=== PATIENT | male | born 1980 | race Caucasian/White ===

== ENCOUNTER 2018-09-21 22:26 | Inpatient (IN) ==
[2018-09-21] MEDS ORDERED: HALOPERIDOL 5 MG TABLET PO ONE (22:54)
[2018-09-21] MEDS ORDERED: OLANZapine 5 MG TABLET PO ONE ×2 (22:54→23:45)
[2018-09-21] MEDS ORDERED: LORazepam 1 MG TABLET PO ONE (22:56)
--- NOTE | 2018-09-21 23:00 | Emergency Department Note ---
Psych HPI - General Chief Complaint: Psychiatric Symptoms Stated Complaint: psych Time Seen by Provider: 09/21/18 22:31 Source: patient Mode of arrival: ambulatory - History of Present Illness HPI Narrative: Patient brought in by police for q. evaluation as his daughter had contacted the police. The patient is chronic schizophrenia but is refusing to take his medications has been seen by QB in the past. Has put a metal tourniquet on his base of his fourth ring finger on the left which shows marked discoloration black and bluish in the distal finger his hand is markedly swollen with erythema as well. Patient is highly uncooperative refusing examination, refusing la boratory tests, refusing medications.. After much explanation patient did agree to have an x-ray taken and did agree to take some medications and have ordered some Zyprexa 5 mg as well as Ativan. [facility] is here to help evaluate with the patient. he states he does not take any medications for his schizophrenia, patient is refusing his blood pressure and temperature at this time pulse is 115 respirations are 16 pulse ox is 92% patient is agreeing at this time to have an x-ray taken in the room. He did agree to take some oral Zyprexa and some Ativan.. Patient is still refusing to have any blood work drawn. Patient states a voice from [employer] told him to put the tourniquet ring on 9 days ago. - Related Data Home Medications Medication Instructions Recorded Confirmed No Known Home Meds 06/26/17 06/26/17 Allergies Allergy/AdvReac Type Severity Reaction Status Date / Time No Known Drug Allergies Allergy Verified 09/21/18 22:36 Review of Systems Limitations: ROS unobtainable due to patients medical condition Constitutional: Reports: fever Past Medical History - Past Medical History PMF Narrative: All Active Problems Contact dermatitis due to poison chhaya (Acute) Foot laceration (Acute) Psychiatric Symptoms (Acute) Schizophrenia, chronic condition with acute exacerbation (Acute) Chronic schizophrenia (Acute) Hand contusion (Acute) Sore throat (viral) (Acute) Cellulitis (Acute) Laceration (Acute) Urethral injury (Chronic) Nausea and vomiting (Chronic) Weight loss (Chronic) Diarrhea (Chronic) Tobacco abuse (Chronic) Gastritis (Acute) Past Surgical History Status post surgery (Chronic) Family History Father Malignant neoplasm of lung Arthritis Mother Essential hypertension Sister Arthritis Psychiatric history: Reports: schizophrenia Surgical history ED: Reports: other (History of pelvic fracture) - Social History smoking status: Current every day smoker Alcohol use: Reports: Occasionally Drug use: Reports: unknown Physical Exam Limitations: altered mental status General appearance: anxious Head: atraumatic Eye: Present: normal appearance, PERRL ENT: normal exam, normal oropharynx Neck: Present: normal inspection, full ROM Chest: Present: normal inspection, symmetric chest wall rise. Absent: tenderness Respiratory: Present: normal lung sounds bilaterally. Absent: respiratory distress Cardiovascular: Present: regular rate Abdominal: Present: soft. Absent: distention, tenderness Shoulder: Present: normal inspection, full ROM Arm: Present: normal inspection, full ROM Elbow: Present: normal inspection, full ROM Forearm/Wrist: Present: normal inspection, full ROM Hand: Present: swelling, ecchymosis (Patient has a [place] on the fourth left digit and ecchymosis black and bluish discoloration erythema to the hand), erythema Vascular: Normal: capillary refill (Poor capillary refill to the left fourth distal digit) Back: Present: normal inspection, full ROM Psychiatric: Present: agitated, poor eye contact, other (Patient hearing voices, voice from [place] telling him to put the tourniquet on his finger) Course Vital Signs Pulse Rate 115 H 09/21/18 22:28 Respiratory Rate 16 09/21/18 22:28 Pulse Oximetry (%) 92 09/21/18 22:28 Temperature 99.0 F 09/22/18 00:08 Pulse Rate 115 H 09/21/18 22:28 Respiratory Rate 22 09/21/18 23:00 Blood Pressure 155/101 09/21/18 23:00 Pulse Oximetry (%) 96 09/21/18 23:00 Psych - MDM Narrative Medical decision making narrative: Patient did agreed on the have a blood draw, but is refusing any consult with a surgeon. We did contact Dr. Yuan states that we should try to cut this ring off although described to him the thickness of the metal on the finger. Patient states he does not trust any doctor and states he wants to leave. He did allow us to get an x-ray. Patient did agree to taking the Zyprexa 5 mg. he has become less agitated has agreed to take another 5 mg Zyprexa. Is also going to let us put an IV and we will start him on some vancomycin. Patient finally convinced that he would allow surgeon to evaluate him. Dr. Julian here to evaluate. He has infiltrated the area with Xylocaine and with much effort did remove the ring. Patient is able to flex the finger however finger still appears to be black and bluish discoloration. Dr. Julian has elected to hospitalize him - Lab Data Result diagrams: 09/21/18 23:35 09/21/18 23:35 Lab Results 09/21/18 09/21/18 09/21/18 Range/Units 23:35 23:35 23:35 WBC 11.7 H (4.5-11.0) K/mcL RBC 4.63 (4.50-5.90) M/mcL Hgb 13.9 (13.5-16.5) g/dL Hct 41.9 (41.0-55.0) % MCV 90.6 (80.0-100.0) fL MCH 30.2 (26.0-34.0) pg MCHC 33.3 (31.0-36.0) g/dL RDW 14.4 (11.5-14.5) % Plt Count 312 (140-440) K/mcL MPV 8.6 (7.4-10.4) fL Total Counted 100 Seg Neutrophils % 80 H (38-78) % Band Neutrophils % Not Reportable Lymphocytes % 11 L (15-49) % Monocytes % (Manual) 3 (1-12) % Eosinophils % (Manual) 4 (0-7) % Basophils % (Manual) 2 (0-2) % Platelet Estimate Normal (NORMAL) RBC Morphology Normal (NORMAL) VBG Lactic Acid (0.5-2.0) mmol/L Sodium 137 (133-145) mmol/L Potassium 3.9 (3.3-5.1) mmol/L Chloride 99 (96-108) mmol/L Carbon Dioxide 23 (22-30) mmol/L Anion Gap 15.0 (8-16) BUN 25 H (6-20) mg/dl Creatinine 0.8 (0.7-1.2) mg/dl GFR Calculation 114 Glucose 126 H (70-105) mg/dL Calcium 9.2 (8.6-10.4) mg/dl Total Bilirubin 0.2 (0.0-1.0) mg/dL AST 17 (0-37) U/l ALT 15 (0-40) U/l Alkaline Phosphatase 83 (39-117) U/L Total Protein 7.4 (5.9-8.4) gm/dL Albumin 4.3 (3.2-5.2) gm/dL Globulin 3.1 (2.2-3.7) gm/dL Albumin/Globulin Ratio 1.4 (1.0-2.3) TSH 2.60 (0.27-5.01) uIU/ml Ethyl Alcohol < 0.010 (<0.010) gm/dl 09/21/18 Range/Units 23:35 WBC (4.5-11.0) K/mcL RBC (4.50-5.90) M/mcL Hgb (13.5-16.5) g/dL Hct (41.0-55.0) % MCV (80.0-100.0) fL MCH (26.0-34.0) pg MCHC (31.0-36.0) g/dL RDW (11.5-14.5) % Plt Count (140-440) K/mcL MPV (7.4-10.4) fL Total Counted Seg Neutrophils % (38-78) % Band Neutrophils % Lymphocytes % (15-49) % Monocytes % (Manual) (1-12) % Eosinophils % (Manual) (0-7) % Basophils % (Manual) (0-2) % Platelet Estimate (NORMAL) RBC Morphology (NORMAL) VBG Lactic Acid 1.2 (0.5-2.0) mmol/L Sodium (133-145) mmol/L Potassium (3.3-5.1) mmol/L Chloride (96-108) mmol/L Carbon Dioxide (22-30) mmol/L Anion Gap (8-16) BUN (6-20) mg/dl Creatinine (0.7-1.2) mg/dl GFR Calculation Glucose (70-105) mg/dL Calcium (8.6-10.4) mg/dl Total Bilirubin (0.0-1.0) mg/dL AST (0-37) U/l ALT (0-40) U/l Alkaline Phosphatase (39-117) U/L Total Protein (5.9-8.4) gm/dL Albumin (3.2-5.2) gm/dL Globulin (2.2-3.7) gm/dL Albumin/Globulin Ratio (1.0-2.3) TSH (0.27-5.01) uIU/ml Ethyl Alcohol (<0.010) gm/dl Disposition Pt seen by ATM SERVICER/PA only: No Clinical Impression: Necrosis Summary: Necrosis of the left fourth finger Disposition: Xfer As Inpt ([facility]) Condition: Serious Time of Disposition: 00:44
[2018-09-21] MEDS ORDERED: ACETAMINOPHEN 325 MG TABLET PO ONE (23:07)
[2018-09-22 00:03] LABS: Mean Cell Volume 90.6 fL (80.0-100.0); Mean Corpuscular HGB Conc 33.3 g/dL (31.0-36.0); Platelet Count 312 K/mcL (140-440); RBC 4.63 M/mcL (4.50-5.90); Red Cell Distribution Width 14.4 % (11.5-14.5)
[2018-09-22] MEDS ORDERED: HYDROmorphone 2 MG/ML VIAL IV PRN (00:10)
[2018-09-22] MEDS ORDERED: HYDROmorphone 2 MG/ML VIAL IV ONE (00:12)
[2018-09-22 00:25] LABS: Basophils % (Manual) 2 % (0-2); Eosinophils % (Manual) 4 % (0-7); Lymphocytes % 11 % (15-49); Monocytes % (Manual) 3 % (1-12); Platelet Estimate NORMAL (NORMAL); RBC Morphology NORMAL (NORMAL); Segmented Neutrophils % 80 % (38-78)
[2018-09-22 00:35] LABS: ALT/SGPT 15 U/l (0-40); Albumin 4.3 gm/dL (3.2-5.2); Albumin/Globulin Ratio 1.4 (1.0-2.3); Alkaline Phosphatase 83 U/L (39-117); Blood Urea Nitrogen 25 mg/dl (6-20)
[2018-09-22] MEDS ORDERED: VANCOMYCIN 1,000 MG in 0.9 % SODIUM CHLORIDE 250 ML IV ONE (00:36)
[2018-09-22] MEDS ORDERED: OLANZapine 10 MG VIAL IM SCH ×2 (01:00→04:00)
[2018-09-22] MEDS ORDERED: cefTRIAXone 1 GM in DEXTROSE 5% IN WATER 50 ML IV SCH (01:00)
--- NOTE | 2018-09-22 01:12 | General Surg History&Physical ---
History of Present Illness Patient information: Note initiated : 09/22/18 at 1:07 am Service Date, if different from initiated Date: [] Patient: Jerry Boyd 38 y/o M admitted on for Psych. Chief Complaint: [Ischemia, left ring finger due to metal band] HPI: Mr. Boyd is a 38 year old M who is seen in the emergency room because of psychotic episode. He has also hammered a metal band around his left ring finger. This man has been present for at least 9 days and he developed ischemic compression necrosis of the soft tissues of the proximal phalanx with secondary infection and cellulitis of the entire hand. The distal left finger is purplish and ischemic. I am contacted to remove the band. Review of Systems ROS unobtainable: due to mental status Past History Past medical history: chronic schizophrenia Past surgical history: none Past family history: unobtainable Past social history: Lives with mother. History of multiple drug use Medications and Allergies Home Medications Medication Instructions Recorded Confirmed Type Acetaminophen [Tylenol] 2 tab PO QIDP PRN 09/22/18 09/22/18 History Aspirin [Lo-Dose Aspirin EC] 4 tab PO PRN PRN 09/22/18 09/22/18 History Cefuroxime [Ceftin] 500 mg PO Q12 #20 tab 09/28/18 Rx OLANZapine [Zyprexa] 20 mg PO DAILY #30 tab 09/28/18 Rx oxyCODONE/APAP [Percocet 5-325 mg] 1 tab PO BID #40 tab 09/28/18 Rx Allergies Allergy/AdvReac Type Severity Reaction Status Date / Time No Known Drug Allergies Allergy Verified 09/21/18 22:36 Exam Temp Pulse Resp BP Pulse Ox 99.0 F 115 H 22 155/101 96 09/22/18 00:08 09/21/18 22:28 09/21/18 23:00 09/21/18 23:00 09/21/18 23:00 - General physical appearance well developed, well nourished, no distress, other (agitated,but cooperative with some coaxing) - Eyes PERRL, normal ocular movement - ENT normal pinna, normal nares, normal mucosa, no hearing loss, no congestion - Head Head exam IM: Present: atraumatic, normocephalic - Neck no masses, no bruits, trachea midline, no lymphadenopathy, no venous distension - Cardiovascular Cardiovascular exam IM: Present: normal rate and rhythm - Respiratory normal expansion, normal respiratory effort, clear to percussion, clear to auscultation - Abdomen Abdomen: Present: soft, non tender, bowel sounds Hernia: Present: none - Genitourinary Present: normal penis with no external lesions - Integumentary Present: no rash, no growths, no abnormal pigmentation - Neurologic Present: normal coordination, normal sensation - Musculoskeletal Present: normal gait, normal posture, other (tight 1.5cm metal band tightly adherent around base of left ring finger with swelling and ecchymosis of the finger ; necrosis of band into superficial tissue of finger and early cellullitis of hand at level of mp joint; some flexion of ring finger) - Psychiatric Present: oriented to person, other (patient is disoriented and has tangential speech and thought pattern;not oriented to place or time ) Assessment and Plan (1) Ischemic necrosis of finger The band will be removed under local anesthesia. Patient will receive IV antibiotics and will be admitted Status: Acute (2) Schizophrenia, chronic condition with acute exacerbation Status: Acute
[2018-09-22] MEDS: 0.9 % SODIUM CHLORIDE 1,000 ML IV SCH ×7 (01:25→17:29)
[2018-09-22] MEDS ORDERED: 0.9 % SODIUM CHLORIDE 1,000 ML IV ONE (01:48)
[2018-09-22] MEDS ORDERED: cefTRIAXone 1 GM VIAL ONE (02:27)
[2018-09-22 04:34] LABS: Appearance,Urine CLEAR; Bacteria,Urine 0 /hpf (0); Bilirubin,Urine NEG (NEG); Color,Urine STRAW; Glucose,Urine (UA) NEGATIVE (NEG); Leukocyte Esterase,Urine NEG /uL (NEG); Mucus,Urine FEW /hpf (0); Protein,Urine NEG (NEG); Specific Gravity,Urine 1.014 (1.000-1.035); Urine Blood NEG mg/dL (<0.03); Urine RBC < 1 /hpf (0-1); Urine Squamous Epithelial Cell 0 /hpf (0-4); Urine WBC < 1 /hpf (0-4); Urobilinogen,Urine NEG (NEG)
[2018-09-22 05:15] LABS: Amphetamine Screen,Urine SUSPECT POSITIVE (NONDETECTED); Benzodiazepines Screen,Urine NONE DETECTED (NONDETECTED); Cocaine Screen,Urine NONE DETECTED (NONDETECTED); Opiate Screen,Urine NONE DETECTED (NONDETECTED); Oxycodone, Urine Screen NONE DETECTED (NONDETECTED)
[2018-09-22] MEDS: HYDROmorphone 2 MG/ML VIAL IV PRN ×5 (06:29→21:17)
[2018-09-22] MEDS: 0.9 % SODIUM CHLORIDE 10 ML SYRINGE IV SCH ×3 (06:48→22:36)
--- NOTE | 2018-09-22 07:58 | XRay Report ---
CLINICAL INFORMATION: Patient placed a metallic band around the left fourth digit TECHNIQUE: AP and lateral left hand COMPARISON: None. FINDINGS: Examination is suboptimal as the patient could not or would not straighten his fingers. There is a metallic band wrapped around the proximal left fourth digit. No fracture identified. There appears to be generalized soft tissue swelling of the left hand and digits. No soft tissue gas bubbles. No other definite abnormality IMPRESSION: 1. Metallic band wrapped around the proximal left fourth digit. 2. Generalized soft tissue swelling Interpreted and Authenticated by: Polo Broussard 09/22/18
[2018-09-22] MEDS: ACETAMINOPHEN 850 MG/85 ML BOTTLE IV PRN ×2 (08:47→18:37)
[2018-09-22] MEDS: ENOXAPARIN 40 MG/0.4 ML SYRINGE SQ SCH (09:14)
--- NOTE | 2018-09-22 12:28 | XRay Report ---
CLINICAL INFORMATION: Removal of a constricting or metallic abnormality from the left fourth digit TECHNIQUE: PA, oblique, lateral left fourth digit COMPARISON: Previous examination dated 09/21/2018 FINDINGS: Status post removal of a metallic band from the proximal aspects of the left fourth digit. There is soft tissue constriction with the band was and distal left fourth digit soft tissue swelling. There is no soft tissue gas. There is no osseous abnormality. IMPRESSION: 1. Status post removal of a metallic band from the left fourth digit 2. Soft tissue constriction and distal swelling. No osseous abnormality Interpreted and Authenticated by: Polo Broussard 09/22/18
--- NOTE | 2018-09-22 13:10 | Consultation ---
DATE OF CONSULTATION: 09/22/2018 CHIEF COMPLAINT: Left ring finger pain, swelling, loss of motion and function with redness. HISTORY: The patient is a 38-year-old, [id number], white male with a chronic history of paranoid schizophrenia who approximately 9 days ago placed a metal band around his left ring finger and it has been in place for the past 9 days, now with pain, redness, swelling of the ring finger with loss of function and motion. PAST MEDICAL HISTORY: Significant for chronic paranoid schizophrenia. PAST SURGICAL HISTORY: Negative. MEDICATIONS: None at the present time. ALLERGIES: The patient has no known drug allergies. SOCIAL HISTORY: Presently, the patient lives by himself but again with the chronic history of paranoid schizophrenia, and has stopped his medications recently. He does not have a history of alcohol or tobacco use. REVIEW OF SYSTEMS: Presently, the patient denies any headaches, vision changes, nausea, vomiting, fever, or chills. No shortness of breath, no wheezing, no chest pain, no abdominal pain, no abnormal bruising or bleeding, and no blood in urine or blood in the stool. PHYSICAL EXAMINATION: VITAL SIGNS: Temperature 97.8 degrees, pulse 72, respiratory rate 18, blood pressure 103/68 and oxygenation of 97% on room air. SKIN: His bilateral upper extremities except for his left ring finger demonstrate no evidence of skin breakdown, maceration, laceration, ulcers, or lesions. No abnormal bruising or ecchymotic regions. His left hand and ring finger demonstrates some moderate edema over the dorsum of the hand with some mild erythema with significant tissue necrosis at the base of the ring finger with significant maceration. There is some granulation tissue deep. There is no exposed bone or tendon at the present time. EXTREMITIES: His left upper extremity demonstrates a shoulder and elbow without deformities. He has elbow flexion from 0 to 145 degrees, no instability with varus or valgus stressing at 0 or 30 degrees of flexion. He has a negative Tinel's at the cubital tunnel. Forearm has no deformities, no atrophy noted. His wrist and hand have no deformities. He has wrist flexion to 75 degrees and extension to 70 degrees. He has ulnar deviation to 35 degrees and radial deviation to 25 degrees. He has full pronation and supination. He again demonstrates some moderate edema with some mild erythema on the dorsum of the hand, minimal edema on the palmar aspect of the hand. He demonstrates the ring finger with a circumferential necrosis at the base of the ring finger with significant maceration. There is exposed soft tissue deep on the dorsum, but minimal on the palmar aspect of the finger. The finger is held in a flexed posture. There is some significant edema distal to the compression site. He does demonstrate some active flexion and extension of the finger at the proximal interphalangeal and distal interphalangeal joint but very limited. He does respond to light touch. He has good capillary refill. There is some hyperemia of the finger, but with good capillary refill at the present time. His thumb, index, middle and small fingers all have good motion, nontender to palpation. His right upper extremity, shoulder, elbow, wrist, and hand without deformities and nontender to palpation, full range of motion, neurovascularly intact distally. GAIT: Demonstrates a good heel toe progression. No antalgic components. RADIOGRAPHS: Plain radiograph AP, lateral, oblique of the left ring finger did not demonstrate any evidence of fractures, dislocations or bony lesions. He has concentric reduction at the metacarpophalangeal joint, the proximal interphalangeal joint, and the distal interphalangeal joint. He demonstrates a significant soft tissue defect at the base of the proximal phalanx. ASSESSMENT: The patient demonstrates a fairly significant soft tissue compressive chronic crush injury to the ring finger with significant soft tissue injury, mostly of the dorsal surface involving at least the skin and subcutaneous down to the level of the extensor tendon, but with no extensor tendon really visualized at the present time. There is no bony involvement. There is some erythema, hyperemia into the finger and the dorsum of the hand with associated edema and with the associated soft tissue necrosis. RECOMMENDATIONS: 1. At the present time, I recommend just observation. 2. Recommend wound care consult for wound care on a daily basis. 3. Recommend IV antibiotics for 3 to 4 days to prevent the deep soft tissue infection. 4. At some point in time when the skin shows better healing and some granulation, would most likely recommend a full thickness skin graft dorsally. 5. The patient would also significantly benefit from inpatient psychiatric consult. 6. The patient would also benefit significantly from hyperbarics to improve oxygenation and soft tissue recovery of the finger. SUSAN:tomasa Job ID: [id number] Doc ID: [id number] Will Yuan MD
[2018-09-22] MEDS: GENTAMICIN SULFATE 40 MG, CLINDAMYCIN 300 MG, BACITRACIN 25,000 UNIT in SODIUM CHLORIDE... IRR SCH ×2 (13:45→22:34)
[2018-09-22] MEDS: cefTRIAXone 1 GM VIAL IV SCH (14:59)
--- NOTE | 2018-09-22 17:26 | General Surgery Progress Note ---
Subjective Patient reports: feels better, pain is less, tolerating a regular diet, afebrile Narrative: Note initiated : 09/22/18 at 5:26 pm Service Date, if different from initiated Date: [] Patient: Jerry Boyd 38 y/o M admitted on 09/22/18 for Psych. Chief Complaint: [Patient is doing much better. He is mentally very calm and cooperates with his care. He has less discomfort in his left hand. He has more flexion of the left ring finger. The cellulitis is beginning to resolve.] Objective Temp Pulse Resp BP Pulse Ox 97.8 F 72 18 103/68 97 09/22/18 12:00 09/22/18 12:00 09/22/18 12:00 09/22/18 12:00 09/22/18 12:00 - Additional Data Intake & Output - Last 24 hours: Intake & Output 09/20/18 09/21/18 09/22/18 09/23/18 05:59 05:59 05:59 05:59 Intake Total 2250 1325 Output Total 400 500 Balance 1850 825 Weight 127 lb - General physical appearance well developed, well nourished, no distress - Eyes PERRL, normal ocular movement - ENT normal pinna, normal nares, normal mucosa, no hearing loss, no congestion - Neck no masses, no bruits, trachea midline, no lymphadenopathy, no venous distension - Respiratory normal expansion, normal respiratory effort, clear to auscultation - Cardiovascular Cardiovascular exam: Present: normal rate and rhythm, RRR, +S1, +S2. Absent: JVD, tachycardia - Abdomen non tender, bowel sounds (present), surgical scars (none), masses (none) - Integumentary no rash, no growths, no abnormal pigmentation - Neurologic other (increased sensation, left ring finger distally) - Musculoskeletal other (cellulitis of left hand is about the same; there is more swelling of the distal finger. This is probably due to reperfusion edema and not infection) - Psychiatric oriented to person, speech is normal - Labs 09/26/18 04:28 09/26/18 04:28 Diabetes panel 09/21/18 Range/Units 23:35 Sodium 137 (133-145) mmol/L Potassium 3.9 (3.3-5.1) mmol/L Chloride 99 (96-108) mmol/L Carbon Dioxide 23 (22-30) mmol/L BUN 25 H (6-20) mg/dl Creatinine 0.8 (0.7-1.2) mg/dl Glucose 126 H (70-105) mg/dL Calcium 9.2 (8.6-10.4) mg/dl AST 17 (0-37) U/l ALT 15 (0-40) U/l Alkaline Phosphatase 83 (39-117) U/L Total Protein 7.4 (5.9-8.4) gm/dL Albumin 4.3 (3.2-5.2) gm/dL Thyroid panel 09/21/18 Range/Units 23:35 TSH 2.60 (0.27-5.01) uIU/ml Calcium panel 09/21/18 Range/Units 23:35 Calcium 9.2 (8.6-10.4) mg/dl Albumin 4.3 (3.2-5.2) gm/dL Pituitary panel 09/21/18 Range/Units 23:35 Sodium 137 (133-145) mmol/L Potassium 3.9 (3.3-5.1) mmol/L Chloride 99 (96-108) mmol/L Carbon Dioxide 23 (22-30) mmol/L BUN 25 H (6-20) mg/dl Creatinine 0.8 (0.7-1.2) mg/dl Glucose 126 H (70-105) mg/dL Calcium 9.2 (8.6-10.4) mg/dl TSH 2.60 (0.27-5.01) uIU/ml Adrenal panel 09/21/18 Range/Units 23:35 Sodium 137 (133-145) mmol/L Potassium 3.9 (3.3-5.1) mmol/L Chloride 99 (96-108) mmol/L Carbon Dioxide 23 (22-30) mmol/L BUN 25 H (6-20) mg/dl Creatinine 0.8 (0.7-1.2) mg/dl Glucose 126 H (70-105) mg/dL Calcium 9.2 (8.6-10.4) mg/dl Total Bilirubin 0.2 (0.0-1.0) mg/dL AST 17 (0-37) U/l ALT 15 (0-40) U/l Alkaline Phosphatase 83 (39-117) U/L Total Protein 7.4 (5.9-8.4) gm/dL Albumin 4.3 (3.2-5.2) gm/dL Assessment and Plan (1) Ischemic ulcer of finger with necrosis of muscle Status: Acute Assessment and plan: Will continue present therapy. The wound is showing evidence of response to treatment and the finger is totally viable. (2) Schizophrenia, chronic condition with acute exacerbation Status: Acute Assessment and plan: Patient remained cooperative with care - Time Spent With Patient Total time spent is greater than 50% in coordination of care (as documented) at patient's floor/unit and/or counseling patient:
[2018-09-22] MEDS ORDERED: OLANZapine 10 MG VIAL IM PRN (18:10)
--- NOTE | 2018-09-22 19:19 | General Surgery Consult Note ---
History of Present Illness Patient information: Note initiated : 09/22/18 at 7:09 pm Service Date, if different from initiated Date: [] Patient: Jerry Boyd 38 y/o M admitted on 09/22/18 for Psych. Chief Complaint: [] Consult date: 09/22/18 Requesting physician: Will Yuan (Wound Care. Lt 4 th finger) History of present illness: Consulted for wound care following emergency removal of constricting ring around base of LEFT fourth finger. I saw this patient earlier this afternoon with Dr. Yuan and Francia RN, In Patient Wound Care Nurse. Reassessed him again and reviewed his progress. H/O Paranoid schizophrenia. Misses medications. Brought to the ER by family member for crush injury of LEFT 4 th finger with extensive circumferential soft tissue necrosis and distal discoloration, cyanosis of fourth finger and proximal soft tissue edema of dorsal hand extending to wrist. Seen by Dr. Kia Julian, General Surgeon. His constricting ring was cut out, at time of admission around 01:00 hrs this morning. Medications and Allergies Home Medications Medication Instructions Recorded Confirmed Type Acetaminophen [Tylenol] 2 tab PO QIDP PRN 09/22/18 09/22/18 History Aspirin [Lo-Dose Aspirin EC] 4 tab PO PRN PRN 09/22/18 09/22/18 History Allergies Allergy/AdvReac Type Severity Reaction Status Date / Time No Known Drug Allergies Allergy Verified 09/21/18 22:36 Exam Temp Pulse Resp BP Pulse Ox 102 F H 95 H 18 103/61 94 09/22/18 18:37 09/22/18 18:15 09/22/18 18:15 09/22/18 18:15 09/22/18 18:15 - General physical appearance well developed, well nourished, no distress, no pain, other (Rsting comfortably and answers simple questions. ) - Eyes PERRL, normal ocular movement, other (Good eye contact. ) - ENT normal pinna, normal mucosa, no congestion - Head Head exam IM: Present: normal inspection, normocephalic - Neck no masses, trachea midline, no venous distension - Cardiovascular Cardiovascular exam IM: Present: normal rate and rhythm - Respiratory normal respiratory effort, clear to auscultation - Abdomen Abdomen: Present: soft, non tender, bowel sounds - Integumentary Present: other (Circumferential soft tissue and full thickness skin loss at base of LEFT 4 th finger.. Tendon, bone or synovial tissue NOT exposed. ) - Neurologic Present: normal coordination, other (No focal neurological deficits, except for LEFT 4 th fingerdistal to site of trauma. Slow refill of capillary over 4 seco nds. Decreased sensation and non mobile IPJ and DIPJ. ) - Musculoskeletal Present: other (Right handed. SIte of trauma to LEFT 4 th finger. Flexion, Extension of wrist to near normal range. THumb, 2,3 and fifth fingers are NV intact. ) - Psychiatric Present: oriented to place (Limited conversation. Answers simple questions. Normal affect at this time. ), speech is normal Results - Labs 09/21/18 23:35 09/21/18 23:35 Abnormal lab results 09/21/18 09/21/18 09/22/18 Range/Units 23:35 23:35 03:27 WBC 11.7 H (4.5-11.0) K/mcL Seg Neutrophils % 80 H (38-78) % Lymphocytes % 11 L (15-49) % BUN 25 H (6-20) mg/dl Glucose 126 H (70-105) mg/dL Ur Amphetamines Screen Suspect positive A (NONDETECTED) U Marijuana (THC) Screen Suspect positive A (NONDETECTED) Diabetes panel 09/21/18 Range/Units 23:35 Sodium 137 (133-145) mmol/L Potassium 3.9 (3.3-5.1) mmol/L Chloride 99 (96-108) mmol/L Carbon Dioxide 23 (22-30) mmol/L BUN 25 H (6-20) mg/dl Creatinine 0.8 (0.7-1.2) mg/dl Glucose 126 H (70-105) mg/dL Calcium 9.2 (8.6-10.4) mg/dl AST 17 (0-37) U/l ALT 15 (0-40) U/l Alkaline Phosphatase 83 (39-117) U/L Total Protein 7.4 (5.9-8.4) gm/dL Albumin 4.3 (3.2-5.2) gm/dL Thyroid panel 09/21/18 Range/Units 23:35 TSH 2.60 (0.27-5.01) uIU/ml Calcium panel 09/21/18 Range/Units 23:35 Calcium 9.2 (8.6-10.4) mg/dl Albumin 4.3 (3.2-5.2) gm/dL Pituitary panel 09/21/18 Range/Units 23:35 Sodium 137 (133-145) mmol/L Potassium 3.9 (3.3-5.1) mmol/L Chloride 99 (96-108) mmol/L Carbon Dioxide 23 (22-30) mmol/L BUN 25 H (6-20) mg/dl Creatinine 0.8 (0.7-1.2) mg/dl Glucose 126 H (70-105) mg/dL Calcium 9.2 (8.6-10.4) mg/dl TSH 2.60 (0.27-5.01) uIU/ml Adrenal panel 09/21/18 Range/Units 23:35 Sodium 137 (133-145) mmol/L Potassium 3.9 (3.3-5.1) mmol/L Chloride 99 (96-108) mmol/L Carbon Dioxide 23 (22-30) mmol/L BUN 25 H (6-20) mg/dl Creatinine 0.8 (0.7-1.2) mg/dl Glucose 126 H (70-105) mg/dL Calcium 9.2 (8.6-10.4) mg/dl Total Bilirubin 0.2 (0.0-1.0) mg/dL AST 17 (0-37) U/l ALT 15 (0-40) U/l Alkaline Phosphatase 83 (39-117) U/L Total Protein 7.4 (5.9-8.4) gm/dL Albumin 4.3 (3.2-5.2) gm/dL All other labs normal. Assessment and Plan (1) Wound, open, finger, with tendon involvement Assessment: OPEN traumatic circumferential wound , s/p removal of infected constricting metallic ring. Non dominant LEFT hand 4 th finger. Patient at risk for losing his finger. HBO treatment will be help in resolution of edema and distal oxygenation, wound healing. CURRENTLY, Inpatient HBOT on hold at [facility]. ( Spoke with Rosa COTO, CNO ) Patient at risk of losing his finger. Hand surgeon on board. Plan: Local wound care Vashe treatment, RICE three times a day. Will monitor closely. Status: Acute Priority: High Comment: CRUSH INJURY with circumferential full thickness skin loss around base of left 4 th finger. Distal edema of finger, with decreased sensation and increased capillary filling time. COOL, DISCOLORED blue east at site of contriction. Qualifiers: Encounter type: initial encounter Qualified Code(s): S61.209A - Unspecified open wound of unspecified finger without damage to nail, initial encounter
[2018-09-23] MEDS: 0.9 % SODIUM CHLORIDE 1,000 ML IV SCH ×2 (04:19→15:00)
[2018-09-23] MEDS: 0.9 % SODIUM CHLORIDE 10 ML SYRINGE IV SCH ×3 (05:59→20:36)
[2018-09-23] MEDS: ENOXAPARIN 40 MG/0.4 ML SYRINGE SQ SCH (09:02)
[2018-09-23] MEDS: cefTRIAXone 1 GM VIAL IV SCH (09:07)
[2018-09-23] MEDS: GENTAMICIN SULFATE 40 MG, CLINDAMYCIN 300 MG, BACITRACIN 25,000 UNIT in SODIUM CHLORIDE... IRR SCH ×3 (09:08→19:41)
--- NOTE | 2018-09-23 10:54 | General Surgery Progress Note ---
Subjective Patient reports: feels better, pain is less, tolerating a regular diet, fever Narrative: Note initiated : 09/23/18 at 10:54 am Service Date, if different from initiated Date: [] Patient: Jerry Boyd 38 y/o M admitted on 09/22/18 for Psych. Chief Complaint: [the patient is continuing to improve. He has less edema of his left hand. The finger is viable, except for the tissue that was compressed by the metal band. There is less erythema and inflammation of the finger and the distal palm. He has been followed by wound care.] Objective Temp Pulse Resp BP Pulse Ox 97.3 F 86 20 102/65 97 09/23/18 08:00 09/23/18 04:00 09/23/18 08:00 09/23/18 08:00 09/23/18 08:00 - Additional Data Intake & Output - Last 24 hours: Intake & Output 09/21/18 09/22/18 09/23/18 09/24/18 05:59 05:59 05:59 05:59 Intake Total 2250 4210 Output Total 400 1950 Balance 1850 2260 Weight 127 lb 130 lb - General physical appearance well developed, well nourished, no distress, other (patient is very calm and cooperative) - Eyes PERRL, normal ocular movement - ENT normal pinna, normal nares, normal mucosa, no hearing loss, no congestion - Neck no masses, no bruits, trachea midline, no lymphadenopathy, no venous distension - Respiratory normal expansion, normal respiratory effort, clear to auscultation - Cardiovascular Cardiovascular exam: Present: normal rate and rhythm, RRR, +S1, +S2. Absent: JVD, tachycardia - Abdomen non tender, bowel sounds (present), surgical scars (none), masses (none) - Integumentary no rash, no growths, no abnormal pigmentation - Neurologic normal coordination, normal sensation - Musculoskeletal normal gait, normal posture, other (. Inflammation and swelling of left hand continues to improve; tissue viability is good) - Psychiatric oriented to person, oriented to place, speech is normal - Labs 09/21/18 23:35 09/21/18 23:35 Assessment and Plan (1) Wound, open, finger, with tendon involvement Problem details: CRUSH INJURY with circumferential full thickness skin loss around base of left 4 th finger. Distal edema of finger, with decreased sensation and increased capillary filling time. COOL, DISCOLORED blue east at site of contriction. Status: Acute Assessment and plan: Continue antibiotic therapy and local wound care Current Visit: Yes (2) Cellulitis Status: Acute Assessment and plan: Continue antibiotic therapy Current Visit: No (3) Schizophrenia, chronic condition with acute exacerbation Status: Acute Current Visit: No - Time Spent With Patient Total time spent is greater than 50% in coordination of care (as documented) at patient's floor/unit and/or counseling patient:
--- NOTE | 2018-09-23 11:51 | General Surgery Progress Note ---
Subjective Narrative: Note initiated : 09/23/18 at 11:47 am Service Date, if different from initiated Date: [] Patient: Jerry Boyd 38 y/o M admitted on 09/22/18 for Psych. Chief Complaint: [] Saw patient with Francia RN Inpatient wound care nurse and JOSEPH RN . No interval events overnite. Objective Temp Pulse Resp BP Pulse Ox 97.3 F 86 20 102/65 97 09/23/18 08:00 09/23/18 04:00 09/23/18 08:00 09/23/18 08:00 09/23/18 08:00 - Additional Data Intake & Output - Last 24 hours: Intake & Output 09/21/18 09/22/18 09/23/18 09/24/18 05:59 05:59 05:59 05:59 Intake Total 2250 4210 Output Total 400 1950 Balance 1850 2260 Weight 127 lb 130 lb 130 lb 09/23/18 11:48 AVSS. No changes AMADOU. L/E. Apparent gradual resolution of distal edema. No movements of DIPJ. Continues to be on IV Rocephin. Tolerating MIST treatments and wound care. - Labs 09/21/18 23:35 09/21/18 23:35 Assessment and Plan (1) Wound, open, finger, with tendon involvement Problem details: CRUSH INJURY with circumferential full thickness skin loss around base of left 4 th finger. Distal edema of finger, with decreased sensation and increased capillary filling time. COOL, DISCOLORED blue east at site of contriction. Status: Acute Current Visit: Yes - Time Spent With Patient Total time spent is greater than 50% in coordination of care (as documented) at patient's floor/unit and/or counseling patient: Assessment: Stable overall. NO overnite issues. Tolerating wound care and IV antibiotics. Plan: Continue present treatment. HBO NOT available for inpatients at present time. Patient NEEDS round the clock wound care and IV antibiotics at this time. 15 - 24 minutes
--- NOTE | 2018-09-23 19:19 | Orthopedic Progress Note ---
Subjective Patient information: Note initiated : 09/23/18 at 7:12 pm Service Date, if different from initiated Date: [] Patient: Jerry Boyd 38 y/o M admitted on 09/22/18 for Psych. Chief Complaint: [] Principal diagnosis: Left ring finger open wound secondary to chronic crush injury Interval history: Patient doing well, awake and responsive. Follows directions well. Good pain control, taking po well Objective Vital signs: Vital Signs Temp Pulse Resp BP Pulse Ox 09/23/18 16:00 97.9 F 62 16 111/72 97 09/23/18 12:00 98.8 F 16 107/72 97 09/23/18 08:00 97.3 F 20 102/65 97 09/23/18 04:00 100.8 F H 86 12 108/69 94 09/23/18 00:30 98.4 F 64 14 92/61 95 09/22/18 20:00 99.5 F H 09/22/18 19:55 99.5 F H 79 16 102/61 94 Intake and Output 09/23/18 09/23/18 09/23/18 05:59 13:59 21:59 Intake Total 1012 024 3187 Output Total 1450 Balance -097 791 2661 Intake: IV 1000 1000 Sodium Chloride 0.9% 1,000 ml @ 1000 1000 100 mls/hr IV .Q10H PREMA Rx#: [id number] Oral 0 240 240 Output: Void Amount 1450 Other: Meal Lunch Dinner Percent of Meal Consumed 100% 100% Feeding Ability Independent Independent Urine Appearance Clear Urine Color Bright Yellow Urine Odor Normal # Voids 1 Weight 130 lb Patient Weight 09/24/18 05:59 Weight 130 lb Intake & Output: Intake & Output 09/23/18 09/23/18 09/23/18 05:59 13:59 21:59 Intake Total 4058 089 5001 Output Total 1450 Balance -964 778 3849 Weight 130 lb Intake: IV 1000 1000 Sodium Chloride 0.9% 1,000 ml @ 1000 1000 100 mls/hr IV .Q10H PREMA Rx#: [id number] Oral 0 240 240 Output: Void Amount 1450 Other: Meal Lunch Dinner Percent of Meal Consumed 100% 100% Feeding Ability Independent Independent Urine Appearance Clear Urine Color Bright Yellow Urine Odor Normal # Voids 1 Incision: Yes draining, Yes red, Yes swollen, Yes inflamed Dressing: Yes clean, Yes dry, Yes intact Weight bearing status: full Additional Comments: His left ring finger is edematous and erythematous with dorsal granulation tissue at the base. He does have some gross flexion and extension of the finger, with good capillary refill, he does respond to light touch but decreased sensation - Labs CBC & BMP: 09/21/18 23:35 09/21/18 23:35 Labs: 09/21/18 23:35 Hgb 13.9 Hct 41.9 Assessment and Plan - Narrative A/P Narrative: Assessment: 1. Chronic paranoid schizophrenia, untreated 2. 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 Showing some granulation tissue 3. Left ring finger at risk for continued necrosis Plan: 1. Continue daily wound care as per Wound Care Service 2. Continue IV Antibiotics 3. Psychiatric evaluation 4. Surgical intervention will most likely be needed, this will not be considered until the patient is adequately managed medically and he is in a monitored environment to promote compliance and appropriate follow up.
[2018-09-23] MEDS: oxyCODONE/APAP 10/325MG TABLET PO PRN ×2 (19:20→23:25)
[2018-09-23] MEDS: HYDROmorphone 2 MG/ML VIAL IV PRN (20:36)
[2018-09-24] MEDS: 0.9 % SODIUM CHLORIDE 1,000 ML IV SCH ×3 (02:40→20:04)
[2018-09-24] MEDS: 0.9 % SODIUM CHLORIDE 10 ML SYRINGE IV SCH ×3 (06:06→21:56)
[2018-09-24 06:07] LABS: Basophils # (Auto) 0 K/mcL (0.0-0.3); Basophils % (Auto) 0.6 % (0.0-2.0); Eosinophils # (Auto) 0.5 K/mcL (0.0-0.7); Eosinophils % (Auto) 8.3 % (0.0-7.0); Granulocytes % (Auto) 44.1 % (38.0-78.0); Lymphocytes # (Auto) 2.2 K/mcL (1.5-4.8); Lymphocytes % (Auto) 35.2 % (15.5-49.0); Mean Cell Volume 91.5 fL (80.0-100.0); Mean Corpuscular HGB Conc 33.1 g/dL (31.0-36.0); Monocytes # (Auto) 0.7 K/mcL (0.1-0.9); Monocytes % (Auto) 11.8 % (1.0-12.0); Platelet Count 263 K/mcL (140-440); RBC 4.03 M/mcL (4.50-5.90); Red Cell Distribution Width 14.5 % (11.5-14.5)
[2018-09-24 06:40] LABS: ALT/SGPT 15 U/l (0-40); Albumin 3.2 gm/dL (3.2-5.2); Albumin/Globulin Ratio 1.4 (1.0-2.3); Alkaline Phosphatase 54 U/L (39-117); Bilirubin,Direct < 0.2 mg/dL (0.0-0.3); Blood Urea Nitrogen 12 mg/dl (6-20); Gamma Glutamyl Transpeptidase 18 U/L (8-61); Uric Acid 4.2 mg/dL (2.5-8.0)
[2018-09-24] MEDS: oxyCODONE/APAP 10/325MG TABLET PO PRN ×3 (07:26→21:25)
[2018-09-24] MEDS: HYDROmorphone 2 MG/ML VIAL IV PRN ×3 (09:19→20:05)
[2018-09-24] MEDS: cefTRIAXone 1 GM VIAL IV SCH (09:58)
[2018-09-24] MEDS: GENTAMICIN SULFATE 40 MG, CLINDAMYCIN 300 MG, BACITRACIN 25,000 UNIT in SODIUM CHLORIDE... IRR SCH ×3 (09:58→21:55)
[2018-09-24] MEDS: ENOXAPARIN 40 MG/0.4 ML SYRINGE SQ SCH (09:59)
--- NOTE | 2018-09-24 15:41 | General Surgery Progress Note ---
Subjective Patient reports: feels better, tolerating a regular diet Narrative: Note initiated : 09/24/18 at 3:41 pm Service Date, if different from initiated Date: [] Patient: Jerry Boyd 38 y/o M admitted on 09/22/18 for Psych. Chief Complaint: [Patient appears to be clinically stable. He still has some hallucinations which is not unanticipated. His left ring finger shows evidence of continued healing. It has good vascularity and viability. There is some decreased sensation but this is dependent on his mental status at the time of exam. He is otherwise cooperative.] Objective Temp Pulse Resp BP Pulse Ox 98.5 F 60 14 104/65 95 09/24/18 15:32 09/24/18 03:25 09/24/18 15:32 09/24/18 15:32 09/24/18 15:32 - Additional Data Intake & Output - Last 24 hours: Intake & Output 09/22/18 09/23/18 09/24/18 09/25/18 05:59 05:59 05:59 05:59 Intake Total 2250 4210 2930 1240 Output Total 400 1950 1125 1200 Balance 1850 2260 1805 40 Weight 127 lb 130 lb 128 lb - Labs 09/24/18 03:54 09/24/18 03:54 Diabetes panel 09/24/18 Range/Units 03:54 Sodium 139 (133-145) mmol/L Potassium 4.3 (3.3-5.1) mmol/L Chloride 104 (96-108) mmol/L Carbon Dioxide 25 (22-30) mmol/L BUN 12 (6-20) mg/dl Creatinine 0.6 L (0.7-1.2) mg/dl Glucose 81 (70-105) mg/dL Calcium 8.5 L (8.6-10.4) mg/dl AST 17 (0-37) U/l ALT 15 (0-40) U/l Alkaline Phosphatase 54 (39-117) U/L Total Protein 5.5 L (5.9-8.4) gm/dL Albumin 3.2 (3.2-5.2) gm/dL Triglycerides 73 (<150) mg/dl Calcium panel 09/24/18 Range/Units 03:54 Calcium 8.5 L (8.6-10.4) mg/dl Phosphorus 4.1 (2.7-4.5) mg/dL Albumin 3.2 (3.2-5.2) gm/dL Pituitary panel 09/24/18 Range/Units 03:54 Sodium 139 (133-145) mmol/L Potassium 4.3 (3.3-5.1) mmol/L Chloride 104 (96-108) mmol/L Carbon Dioxide 25 (22-30) mmol/L BUN 12 (6-20) mg/dl Creatinine 0.6 L (0.7-1.2) mg/dl Glucose 81 (70-105) mg/dL Calcium 8.5 L (8.6-10.4) mg/dl Adrenal panel 09/24/18 Range/Units 03:54 Sodium 139 (133-145) mmol/L Potassium 4.3 (3.3-5.1) mmol/L Chloride 104 (96-108) mmol/L Carbon Dioxide 25 (22-30) mmol/L BUN 12 (6-20) mg/dl Creatinine 0.6 L (0.7-1.2) mg/dl Glucose 81 (70-105) mg/dL Calcium 8.5 L (8.6-10.4) mg/dl Total Bilirubin < 0.2 (0.0-1.0) mg/dL AST 17 (0-37) U/l ALT 15 (0-40) U/l Alkaline Phosphatase 54 (39-117) U/L Total Protein 5.5 L (5.9-8.4) gm/dL Albumin 3.2 (3.2-5.2) gm/dL Assessment and Plan (1) Wound, open, finger, with tendon involvement Problem details: CRUSH INJURY with circumferential full thickness skin loss around base of left 4 th finger. Distal edema of finger, with decreased sensation and increased capillary filling time. COOL, DISCOLORED blue east at site of contriction. Status: Acute Assessment and plan: Continue antibiotic therapy and local wound care Awaiting decision of mental health and hand surgeon, concerning disposition Current Visit: Yes (2) Cellulitis Status: Acute Assessment and plan: Continue antibiotic therapy Current Visit: No (3) Schizophrenia, chronic condition with acute exacerbation Status: Acute Current Visit: No - Time Spent With Patient Total time spent is greater than 50% in coordination of care (as documented) at patient's floor/unit and/or counseling patient:
--- NOTE | 2018-09-24 15:43 | Orthopedic Progress Note ---
Subjective Patient information: Note initiated : 09/24/18 at 3:39 pm Service Date, if different from initiated Date: [] Patient: Jerry Boyd 38 y/o M admitted on 09/22/18 for Psych. Chief Complaint: [] Principal diagnosis: Left ring finger open wound secondary to chronic crush injury Interval history: Patient awake and responsive, improved pain control. Taking po well Objective Vital signs: Vital Signs Temp Pulse Resp BP BP Pulse Ox 09/24/18 15:32 98.5 F 14 104/65 95 09/24/18 11:44 98.0 F 14 96/59 96 09/24/18 06:41 97.6 F 16 101/60 97 09/24/18 03:25 97.8 F 60 16 95/53 96 09/23/18 23:25 97.8 F 63 16 89/50 95 09/23/18 19:23 98.4 F 77 20 106/62 95 09/23/18 16:00 97.9 F 62 16 111/72 97 Intake and Output 09/24/18 09/24/18 09/24/18 05:59 13:59 21:59 Intake Total 1450 1000 240 Output Total 550 1200 Balance 900 -200 240 Intake: IV 1000 1000 Sodium Chloride 0.9% 1,000 ml @ 1000 1000 100 mls/hr IV .Q10H PREMA Rx#: [id number] Oral 450 240 Output: Void Amount 550 1200 Other: Meal 1x yogurt Percent of Meal Consumed 100% Feeding Ability Independent Intake & Output: Intake & Output 09/24/18 09/24/18 09/24/18 05:59 13:59 21:59 Intake Total 1450 1000 240 Output Total 550 1200 Balance 900 -200 240 Intake: IV 1000 1000 Sodium Chloride 0.9% 1,000 ml @ 1000 1000 100 mls/hr IV .Q10H PREMA Rx#: [id number] Oral 450 240 Output: Void Amount 550 1200 Other: Meal 1x yogurt Percent of Meal Consumed 100% Feeding Ability Independent Incision: Yes red, Yes swollen Dressing: Yes dry, Yes intact Additional Comments: Left ring finger continues to be edematous and erythematous, necrotic tissue dorsally, tissue maceration both masterson and dorsal. Dorsal granulation tissue Extremities exam IM: Yes normal capillary refill - Labs CBC & BMP: 09/24/18 03:54 09/24/18 03:54 Labs: 09/24/18 09/21/18 03:54 23:35 Hgb 12.2 L 13.9 Hct 36.9 L 41.9 Assessment and Plan - Narrative A/P Narrative: Assessment: 1. Chronic paranoid schizophrenia, untreated 2. 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 Showing some granulation tissue 3. Left ring finger at risk for continued necrosis Plan: 1. Continue daily wound care as per Wound Care Service 2. Continue IV Antibiotics 3. Psychiatric evaluation 4. Surgical intervention will most likely be needed, this will not be considered until the patient is adequately managed medically and he is in a monitored environment to promote compliance and appropriate follow up.
--- NOTE | 2018-09-24 15:55 | General Surgery Progress Note ---
Subjective Patient reports: other Narrative: Note initiated : 09/24/18 at 3:53 pm Service Date, if different from initiated Date: [] Patient: Jerry Boyd 38 y/o M admitted on 09/22/18 for Psych. Chief Complaint: [] Patient seen with Francia COTO, In patient wound care nurse. Objective Temp Pulse Resp BP Pulse Ox 98.5 F 60 14 104/65 95 09/24/18 15:32 09/24/18 03:25 09/24/18 15:32 09/24/18 15:32 09/24/18 15:32 AVSS. No changes AMADOU. L/E: Marginal improvement Granulating base around exposed synovial tissue. Circumferential soft tissue necrosis. SLOW demarcation. - Additional Data Intake & Output - Last 24 hours: Intake & Output 09/22/18 09/23/18 09/24/18 09/25/18 05:59 05:59 05:59 05:59 Intake Total 2250 4210 2930 1240 Output Total 400 1950 1125 1200 Balance 1850 2260 1805 40 Weight 127 lb 130 lb 128 lb - Labs 09/24/18 03:54 09/24/18 03:54 Diabetes panel 09/24/18 Range/Units 03:54 Sodium 139 (133-145) mmol/L Potassium 4.3 (3.3-5.1) mmol/L Chloride 104 (96-108) mmol/L Carbon Dioxide 25 (22-30) mmol/L BUN 12 (6-20) mg/dl Creatinine 0.6 L (0.7-1.2) mg/dl Glucose 81 (70-105) mg/dL Calcium 8.5 L (8.6-10.4) mg/dl AST 17 (0-37) U/l ALT 15 (0-40) U/l Alkaline Phosphatase 54 (39-117) U/L Total Protein 5.5 L (5.9-8.4) gm/dL Albumin 3.2 (3.2-5.2) gm/dL Triglycerides 73 (<150) mg/dl Calcium panel 09/24/18 Range/Units 03:54 Calcium 8.5 L (8.6-10.4) mg/dl Phosphorus 4.1 (2.7-4.5) mg/dL Albumin 3.2 (3.2-5.2) gm/dL Pituitary panel 09/24/18 Range/Units 03:54 Sodium 139 (133-145) mmol/L Potassium 4.3 (3.3-5.1) mmol/L Chloride 104 (96-108) mmol/L Carbon Dioxide 25 (22-30) mmol/L BUN 12 (6-20) mg/dl Creatinine 0.6 L (0.7-1.2) mg/dl Glucose 81 (70-105) mg/dL Calcium 8.5 L (8.6-10.4) mg/dl Adrenal panel 09/24/18 Range/Units 03:54 Sodium 139 (133-145) mmol/L Potassium 4.3 (3.3-5.1) mmol/L Chloride 104 (96-108) mmol/L Carbon Dioxide 25 (22-30) mmol/L BUN 12 (6-20) mg/dl Creatinine 0.6 L (0.7-1.2) mg/dl Glucose 81 (70-105) mg/dL Calcium 8.5 L (8.6-10.4) mg/dl Total Bilirubin < 0.2 (0.0-1.0) mg/dL AST 17 (0-37) U/l ALT 15 (0-40) U/l Alkaline Phosphatase 54 (39-117) U/L Total Protein 5.5 L (5.9-8.4) gm/dL Albumin 3.2 (3.2-5.2) gm/dL Assessment and Plan (1) Wound, open, finger, with tendon involvement Problem details: CRUSH INJURY with circumferential full thickness skin loss around base of left 4 th finger. Distal edema of finger, with decreased sensation and increased capillary filling time. COOL, DISCOLORED blue east at site of contriction. Status: Acute Current Visit: Yes - Narrative A/P Narrative: Assessment: Slow progress. Agree with Dr. Yuan and Dr. Julian. Plan: Continue current wound care. Patient needs evaluation and management of Psych issues. Finger continues to be at risk for amputation. - Time Spent With Patient Total time spent is greater than 50% in coordination of care (as documented) at patient's floor/unit and/or counseling patient: 25 - 35 minutes
[2018-09-25] MEDS: oxyCODONE/APAP 10/325MG TABLET PO PRN ×5 (04:11→22:05)
[2018-09-25] MEDS: 0.9 % SODIUM CHLORIDE 10 ML SYRINGE IV SCH ×3 (05:03→23:03)
[2018-09-25 05:44] LABS: Basophils # (Auto) 0 K/mcL (0.0-0.3); Basophils % (Auto) 0.6 % (0.0-2.0); Eosinophils # (Auto) 0.6 K/mcL (0.0-0.7); Eosinophils % (Auto) 8.7 % (0.0-7.0); Lymphocytes # (Auto) 2.4 K/mcL (1.5-4.8); Lymphocytes % (Auto) 35.1 % (15.5-49.0); Mean Cell Volume 91.1 fL (80.0-100.0); Monocytes # (Auto) 0.6 K/mcL (0.1-0.9); Monocytes % (Auto) 9.6 % (1.0-12.0); Platelet Count 318 K/mcL (140-440); RBC 4.07 M/mcL (4.50-5.90); Red Cell Distribution Width 14.4 % (11.5-14.5)
[2018-09-25 05:59] LABS: ALT/SGPT 15 U/l (0-40); Albumin 3.3 gm/dL (3.2-5.2); Albumin/Globulin Ratio 1.2 (1.0-2.3); Alkaline Phosphatase 59 U/L (39-117); Bilirubin,Direct < 0.2 mg/dL (0.0-0.3); Blood Urea Nitrogen 10 mg/dl (6-20); Gamma Glutamyl Transpeptidase 16 U/L (8-61); Uric Acid 4.4 mg/dL (2.5-8.0)
[2018-09-25] MEDS: 0.9 % SODIUM CHLORIDE 1,000 ML IV SCH ×3 (09:28→19:28)
[2018-09-25] MEDS: GENTAMICIN SULFATE 40 MG, CLINDAMYCIN 300 MG, BACITRACIN 25,000 UNIT in SODIUM CHLORIDE... IRR SCH ×3 (09:52→23:02)
[2018-09-25] MEDS: ENOXAPARIN 40 MG/0.4 ML SYRINGE SQ SCH (09:53)
[2018-09-25] MEDS: cefTRIAXone 1 GM VIAL IV SCH (09:53)
--- NOTE | 2018-09-25 12:46 | General Surgery Progress Note ---
Subjective Patient reports: no new complaints (Patient seen with Katherine COTO. No overnite events. Calm and cooperative. ), other Narrative: Note initiated : 09/25/18 at 12:42 pm Service Date, if different from initiated Date: [] Patient: Jrery Boyd 38 y/o M admitted on 09/22/18 for Psych. Chief Complaint: [] Objective Temp Pulse Resp BP Pulse Ox 98.9 F 76 16 114/70 96 09/25/18 11:48 09/25/18 03:00 09/25/18 11:48 09/25/18 11:48 09/25/18 11:48 AVSS. No changes AMADOU. Wounds of LEFT hand ring finger examined. GRADUAL resolution of inflammatory changes, Following Dr. Julian and Dr. Yuan's palns. - Additional Data Intake & Output - Last 24 hours: Intake & Output 09/23/18 09/24/18 09/25/18 09/26/18 05:59 05:59 05:59 05:59 Intake Total 4210 2930 2628 1000 Output Total 1950 1125 2250 1000 Balance 2260 1805 378 0 Weight 130 lb 128 lb 132 lb - Labs 09/25/18 04:10 09/25/18 04:10 Diabetes panel 09/25/18 Range/Units 04:10 Sodium 141 (133-145) mmol/L Potassium 4.1 (3.3-5.1) mmol/L Chloride 103 (96-108) mmol/L Carbon Dioxide 27 (22-30) mmol/L BUN 10 (6-20) mg/dl Creatinine 0.7 (0.7-1.2) mg/dl Glucose 90 (70-105) mg/dL Calcium 8.7 (8.6-10.4) mg/dl AST 14 (0-37) U/l ALT 15 (0-40) U/l Alkaline Phosphatase 59 (39-117) U/L Total Protein 6.0 (5.9-8.4) gm/dL Albumin 3.3 (3.2-5.2) gm/dL Triglycerides 94 (<150) mg/dl Calcium panel 09/25/18 Range/Units 04:10 Calcium 8.7 (8.6-10.4) mg/dl Phosphorus 3.9 (2.7-4.5) mg/dL Albumin 3.3 (3.2-5.2) gm/dL Pituitary panel 09/25/18 Range/Units 04:10 Sodium 141 (133-145) mmol/L Potassium 4.1 (3.3-5.1) mmol/L Chloride 103 (96-108) mmol/L Carbon Dioxide 27 (22-30) mmol/L BUN 10 (6-20) mg/dl Creatinine 0.7 (0.7-1.2) mg/dl Glucose 90 (70-105) mg/dL Calcium 8.7 (8.6-10.4) mg/dl Adrenal panel 09/25/18 Range/Units 04:10 Sodium 141 (133-145) mmol/L Potassium 4.1 (3.3-5.1) mmol/L Chloride 103 (96-108) mmol/L Carbon Dioxide 27 (22-30) mmol/L BUN 10 (6-20) mg/dl Creatinine 0.7 (0.7-1.2) mg/dl Glucose 90 (70-105) mg/dL Calcium 8.7 (8.6-10.4) mg/dl Total Bilirubin < 0.2 (0.0-1.0) mg/dL AST 14 (0-37) U/l ALT 15 (0-40) U/l Alkaline Phosphatase 59 (39-117) U/L Total Protein 6.0 (5.9-8.4) gm/dL Albumin 3.3 (3.2-5.2) gm/dL Assessment and Plan (1) Wound, open, finger, with tendon involvement Problem details: CRUSH INJURY with circumferential full thickness skin loss around base of left 4 th finger. Distal edema of finger, with decreased sensation and increased capillary filling time. COOL, DISCOLORED blue east at site of contriction. Status: Acute Current Visit: Yes - Narrative A/P Narrative: Assessment: Stable wound Slow progress, Plan Await developments. Continue present treatment. - Time Spent With Patient Total time spent is greater than 50% in coordination of care (as documented) at patient's floor/unit and/or counseling patient: 15 - 24 minutes
--- NOTE | 2018-09-25 14:58 | General Surgery Progress Note ---
Subjective Patient reports: feels better, pain is less, afebrile Narrative: Note initiated : 09/25/18 at 2:56 pm Service Date, if different from initiated Date: [] Patient: Jerry Boyd 38 y/o M admitted on 09/22/18 for Psych. Chief Complaint: [patient continues to improve. The wound on the left ring finger continues to granulate. It will need some debridement. Current plan is to try to transfer her to a facility that has inpatient psychiatry, as well as plastic surgery or hand surgery. Cultures growing out methicillin sensitive Staphylococcus aureus.] Objective Temp Pulse Resp BP Pulse Ox 98.9 F 76 16 114/70 96 09/25/18 11:48 09/25/18 03:00 09/25/18 11:48 09/25/18 11:48 09/25/18 11:48 - Additional Data Intake & Output - Last 24 hours: Intake & Output 09/23/18 09/24/18 09/25/18 09/26/18 05:59 05:59 05:59 05:59 Intake Total 4210 2930 2628 1240 Output Total 1950 1125 2250 1000 Balance 2260 1805 378 240 Weight 130 lb 128 lb 132 lb - Labs 09/25/18 04:10 09/25/18 04:10 Diabetes panel 09/25/18 Range/Units 04:10 Sodium 141 (133-145) mmol/L Potassium 4.1 (3.3-5.1) mmol/L Chloride 103 (96-108) mmol/L Carbon Dioxide 27 (22-30) mmol/L BUN 10 (6-20) mg/dl Creatinine 0.7 (0.7-1.2) mg/dl Glucose 90 (70-105) mg/dL Calcium 8.7 (8.6-10.4) mg/dl AST 14 (0-37) U/l ALT 15 (0-40) U/l Alkaline Phosphatase 59 (39-117) U/L Total Protein 6.0 (5.9-8.4) gm/dL Albumin 3.3 (3.2-5.2) gm/dL Triglycerides 94 (<150) mg/dl Calcium panel 09/25/18 Range/Units 04:10 Calcium 8.7 (8.6-10.4) mg/dl Phosphorus 3.9 (2.7-4.5) mg/dL Albumin 3.3 (3.2-5.2) gm/dL Pituitary panel 09/25/18 Range/Units 04:10 Sodium 141 (133-145) mmol/L Potassium 4.1 (3.3-5.1) mmol/L Chloride 103 (96-108) mmol/L Carbon Dioxide 27 (22-30) mmol/L BUN 10 (6-20) mg/dl Creatinine 0.7 (0.7-1.2) mg/dl Glucose 90 (70-105) mg/dL Calcium 8.7 (8.6-10.4) mg/dl Adrenal panel 09/25/18 Range/Units 04:10 Sodium 141 (133-145) mmol/L Potassium 4.1 (3.3-5.1) mmol/L Chloride 103 (96-108) mmol/L Carbon Dioxide 27 (22-30) mmol/L BUN 10 (6-20) mg/dl Creatinine 0.7 (0.7-1.2) mg/dl Glucose 90 (70-105) mg/dL Calcium 8.7 (8.6-10.4) mg/dl Total Bilirubin < 0.2 (0.0-1.0) mg/dL AST 14 (0-37) U/l ALT 15 (0-40) U/l Alkaline Phosphatase 59 (39-117) U/L Total Protein 6.0 (5.9-8.4) gm/dL Albumin 3.3 (3.2-5.2) gm/dL Assessment and Plan (1) Wound, open, finger, with tendon involvement Problem details: CRUSH INJURY with circumferential full thickness skin loss around base of left 4 th finger. Distal edema of finger, with decreased sensation and increased capillary filling time. COOL, DISCOLORED blue east at site of contriction. Status: Acute Assessment and plan: Continue antibiotic therapy and local wound care Awaiting decision of mental health and hand surgeon, concerning disposition Current Visit: Yes (2) Cellulitis Status: Acute Assessment and plan: Continue antibiotic therapy Current Visit: No (3) Schizophrenia, chronic condition with acute exacerbation Status: Acute Current Visit: No - Time Spent With Patient Total time spent is greater than 50% in coordination of care (as documented) at patient's floor/unit and/or counseling patient:
[2018-09-26] MEDS: 0.9 % SODIUM CHLORIDE 1,000 ML IV SCH ×5 (01:14→21:46)
[2018-09-26] MEDS: 0.9 % SODIUM CHLORIDE 10 ML SYRINGE IV SCH ×3 (05:01→21:47)
[2018-09-26 05:41] LABS: Basophils # (Auto) 0.1 K/mcL (0.0-0.3); Basophils % (Auto) 0.9 % (0.0-2.0); Eosinophils # (Auto) 0.5 K/mcL (0.0-0.7); Eosinophils % (Auto) 8.8 % (0.0-7.0); Granulocytes % (Auto) 36.5 % (38.0-78.0); Lymphocytes # (Auto) 2.6 K/mcL (1.5-4.8); Lymphocytes % (Auto) 43.2 % (15.5-49.0); Mean Cell Volume 91.9 fL (80.0-100.0); Monocytes # (Auto) 0.6 K/mcL (0.1-0.9); Monocytes % (Auto) 10.6 % (1.0-12.0); Platelet Count 329 K/mcL (140-440); RBC 3.98 M/mcL (4.50-5.90); Red Cell Distribution Width 14.1 % (11.5-14.5)
[2018-09-26 06:08] LABS: ALT/SGPT 20 U/l (0-40); Albumin 3.2 gm/dL (3.2-5.2); Albumin/Globulin Ratio 1.2 (1.0-2.3); Alkaline Phosphatase 54 U/L (39-117); Bilirubin,Direct < 0.2 mg/dL (0.0-0.3); Blood Urea Nitrogen 13 mg/dl (6-20); Gamma Glutamyl Transpeptidase 16 U/L (8-61); Uric Acid 4.3 mg/dL (2.5-8.0)
[2018-09-26] MEDS: cefTRIAXone 1 GM VIAL IV SCH (08:44)
[2018-09-26] MEDS: oxyCODONE/APAP 10/325MG TABLET PO PRN ×3 (08:48→21:31)
[2018-09-26] MEDS: GENTAMICIN SULFATE 40 MG, CLINDAMYCIN 300 MG, BACITRACIN 25,000 UNIT in SODIUM CHLORIDE... IRR SCH ×3 (08:48→23:08)
[2018-09-26] MEDS: ENOXAPARIN 40 MG/0.4 ML SYRINGE SQ SCH (08:48)
--- NOTE | 2018-09-26 14:01 | General Surgery Progress Note ---
Subjective Patient reports: feels better, pain is less, afebrile Narrative: Note initiated : 09/26/18 at 1:59 pm Service Date, if different from initiated Date: [] Patient: Jerry Boyd 38 y/o M admitted on 09/22/18 for Psych. Chief Complaint: [Patient continues to improve. His ring finger on the left hand is healing slowly. All of the distal tissue is viable. Cellulitis of the palm and the dorsum of the hand is significantly improved. All of his digits are warm. At this time, I'm just waiting for disposition on his long-term follow-up. Clinically he is ready for operative therapy.] Objective Temp Pulse Resp BP Pulse Ox 98.1 F 54 L 20 115/71 96 09/26/18 11:35 09/26/18 03:06 09/26/18 11:35 09/26/18 11:35 09/26/18 11:35 - Additional Data Intake & Output - Last 24 hours: Intake & Output 09/24/18 09/25/18 09/26/18 09/27/18 05:59 05:59 05:59 05:59 Intake Total 2930 2628 4020 480 Output Total 1125 2250 2475 Balance 8560 980 4728 480 Weight 128 lb 132 lb 127 lb - Labs 09/26/18 04:28 09/26/18 04:28 Diabetes panel 09/26/18 Range/Units 04:28 Sodium 140 (133-145) mmol/L Potassium 4.1 (3.3-5.1) mmol/L Chloride 104 (96-108) mmol/L Carbon Dioxide 27 (22-30) mmol/L BUN 13 (6-20) mg/dl Creatinine 0.7 (0.7-1.2) mg/dl Glucose 91 (70-105) mg/dL Calcium 8.7 (8.6-10.4) mg/dl AST 22 (0-37) U/l ALT 20 (0-40) U/l Alkaline Phosphatase 54 (39-117) U/L Total Protein 5.8 L (5.9-8.4) gm/dL Albumin 3.2 (3.2-5.2) gm/dL Triglycerides 80 (<150) mg/dl Calcium panel 09/26/18 Range/Units 04:28 Calcium 8.7 (8.6-10.4) mg/dl Phosphorus 4.0 (2.7-4.5) mg/dL Albumin 3.2 (3.2-5.2) gm/dL Pituitary panel 09/26/18 Range/Units 04:28 Sodium 140 (133-145) mmol/L Potassium 4.1 (3.3-5.1) mmol/L Chloride 104 (96-108) mmol/L Carbon Dioxide 27 (22-30) mmol/L BUN 13 (6-20) mg/dl Creatinine 0.7 (0.7-1.2) mg/dl Glucose 91 (70-105) mg/dL Calcium 8.7 (8.6-10.4) mg/dl Adrenal panel 09/26/18 Range/Units 04:28 Sodium 140 (133-145) mmol/L Potassium 4.1 (3.3-5.1) mmol/L Chloride 104 (96-108) mmol/L Carbon Dioxide 27 (22-30) mmol/L BUN 13 (6-20) mg/dl Creatinine 0.7 (0.7-1.2) mg/dl Glucose 91 (70-105) mg/dL Calcium 8.7 (8.6-10.4) mg/dl Total Bilirubin < 0.2 (0.0-1.0) mg/dL AST 22 (0-37) U/l ALT 20 (0-40) U/l Alkaline Phosphatase 54 (39-117) U/L Total Protein 5.8 L (5.9-8.4) gm/dL Albumin 3.2 (3.2-5.2) gm/dL Assessment and Plan (1) Wound, open, finger, with tendon involvement Problem details: CRUSH INJURY with circumferential full thickness skin loss around base of left 4 th finger. Distal edema of finger, with decreased sensation and increased capillary filling time. COOL, DISCOLORED blue east at site of contriction. Status: Acute Assessment and plan: Continue antibiotic therapy and local wound care Awaiting decision of mental health and hand surgeon, concerning disposition Current Visit: Yes (2) Cellulitis Status: Acute Assessment and plan: Continue antibiotic therapy Current Visit: No (3) Schizophrenia, chronic condition with acute exacerbation Status: Acute Current Visit: No - Time Spent With Patient Total time spent is greater than 50% in coordination of care (as documented) at patient's floor/unit and/or counseling patient:
--- NOTE | 2018-09-26 15:30 | General Surgery Progress Note ---
Subjective Narrative: Note initiated : 09/26/18 at 3:20 pm Service Date, if different from initiated Date: [] Patient: Jerry Boyd 38 y/o M admitted on 09/22/18 for Psych. Chief Complaint: [] Patient seen. He is progressing gradually. No acute problems since admission. Objective Temp Pulse Resp BP Pulse Ox 98.1 F 54 L 20 115/71 96 09/26/18 11:35 09/26/18 03:06 09/26/18 11:35 09/26/18 11:35 09/26/18 11:35 - Additional Data Intake & Output - Last 24 hours: Intake & Output 09/24/18 09/25/18 09/26/18 09/27/18 05:59 05:59 05:59 05:59 Intake Total 2930 2628 4020 480 Output Total 1125 2250 2475 Balance 3364 103 6063 480 Weight 128 lb 132 lb 127 lb 09/26/18 15:30 AVSS. Comfortable, cooperative and appropriate. No acute changes AMADOU. Left hand dressing CDI. Noted Dr. Julian's impression. - Labs 09/26/18 04:28 09/26/18 04:28 Diabetes panel 09/26/18 Range/Units 04:28 Sodium 140 (133-145) mmol/L Potassium 4.1 (3.3-5.1) mmol/L Chloride 104 (96-108) mmol/L Carbon Dioxide 27 (22-30) mmol/L BUN 13 (6-20) mg/dl Creatinine 0.7 (0.7-1.2) mg/dl Glucose 91 (70-105) mg/dL Calcium 8.7 (8.6-10.4) mg/dl AST 22 (0-37) U/l ALT 20 (0-40) U/l Alkaline Phosphatase 54 (39-117) U/L Total Protein 5.8 L (5.9-8.4) gm/dL Albumin 3.2 (3.2-5.2) gm/dL Triglycerides 80 (<150) mg/dl Calcium panel 09/26/18 Range/Units 04:28 Calcium 8.7 (8.6-10.4) mg/dl Phosphorus 4.0 (2.7-4.5) mg/dL Albumin 3.2 (3.2-5.2) gm/dL Pituitary panel 09/26/18 Range/Units 04:28 Sodium 140 (133-145) mmol/L Potassium 4.1 (3.3-5.1) mmol/L Chloride 104 (96-108) mmol/L Carbon Dioxide 27 (22-30) mmol/L BUN 13 (6-20) mg/dl Creatinine 0.7 (0.7-1.2) mg/dl Glucose 91 (70-105) mg/dL Calcium 8.7 (8.6-10.4) mg/dl Adrenal panel 09/26/18 Range/Units 04:28 Sodium 140 (133-145) mmol/L Potassium 4.1 (3.3-5.1) mmol/L Chloride 104 (96-108) mmol/L Carbon Dioxide 27 (22-30) mmol/L BUN 13 (6-20) mg/dl Creatinine 0.7 (0.7-1.2) mg/dl Glucose 91 (70-105) mg/dL Calcium 8.7 (8.6-10.4) mg/dl Total Bilirubin < 0.2 (0.0-1.0) mg/dL AST 22 (0-37) U/l ALT 20 (0-40) U/l Alkaline Phosphatase 54 (39-117) U/L Total Protein 5.8 L (5.9-8.4) gm/dL Albumin 3.2 (3.2-5.2) gm/dL Assessment and Plan (1) Wound, open, finger, with tendon involvement Problem details: CRUSH INJURY with circumferential full thickness skin loss around base of left 4 th finger. Distal edema of finger, with decreased sensation and increased capillary filling time. COOL, DISCOLORED blue east at site of contriction. Status: Acute Current Visit: Yes - Time Spent With Patient Total time spent is greater than 50% in coordination of care (as documented) at patient's floor/unit and/or counseling patient: Assessment: Stable from wound care point of view. Plan: Continue current treatment. Follow patient peripherally at this time. less than 15 minutes
[2018-09-27] MEDS: 0.9 % SODIUM CHLORIDE 1,000 ML IV SCH ×4 (03:01→16:23)
[2018-09-27] MEDS: 0.9 % SODIUM CHLORIDE 10 ML SYRINGE IV SCH ×3 (05:25→22:46)
[2018-09-27] MEDS: ENOXAPARIN 40 MG/0.4 ML SYRINGE SQ SCH (09:48)
[2018-09-27] MEDS: GENTAMICIN SULFATE 40 MG, CLINDAMYCIN 300 MG, BACITRACIN 25,000 UNIT in SODIUM CHLORIDE... IRR SCH ×2 (09:48→22:54)
[2018-09-27] MEDS: cefTRIAXone 1 GM VIAL IV SCH (09:48)
[2018-09-27] MEDS: oxyCODONE/APAP 10/325MG TABLET PO PRN ×3 (09:49→22:46)
--- NOTE | 2018-09-27 11:29 | General Surgery Progress Note ---
Subjective Narrative: Note initiated : 09/27/18 at 11:25 am Service Date, if different from initiated Date: [] Patient: Jerry Boyd 38 y/o M admitted on 09/22/18 for Psych. Chief Complaint: [] Uneventful night. No subjective complaints. Patient seen with Francia COTO, In Patient wound care nurse. Objective Temp Pulse Resp BP Pulse Ox 98.0 F 57 L 16 117/70 98 09/27/18 08:00 09/27/18 08:00 09/27/18 08:00 09/27/18 08:00 09/27/18 08:00 - Additional Data Intake & Output - Last 24 hours: Intake & Output 09/25/18 09/26/18 09/27/18 09/28/18 05:59 05:59 05:59 05:59 Intake Total 2628 4020 3705 Output Total 2250 2475 2625 Balance 378 1545 1080 Weight 132 lb 127 lb 128 lb 09/27/18 11:26 AVSS. HD Stable. No changes AMADOU. L/E Continuing Improvement. Resolving inflammation ROM fingers improving. LEFT 4 th finger still has restricted ROM at MP and IP joints, Granulations covering raw areas. - Labs 09/26/18 04:28 09/26/18 04:28 Assessment and Plan (1) Wound, open, finger, with tendon involvement Problem details: CRUSH INJURY with circumferential full thickness skin loss around base of left 4 th finger. Distal edema of finger, with decreased sensation and increased capillary filling time. COOL, DISCOLORED blue east at site of contriction. Status: Acute Current Visit: Yes - Narrative A/P Narrative: Assessment: Satisfactory progress. Plan: Continue ongoing wound care. MIST treatments BID. Await input from Hand Surgery AND General Surgery. - Time Spent With Patient Total time spent is greater than 50% in coordination of care (as documented) at patient's floor/unit and/or counseling patient:
--- NOTE | 2018-09-27 17:50 | General Surgery Progress Note ---
Subjective Patient reports: feels better, pain is less, afebrile Narrative: Note initiated : 09/27/18 at 5:49 pm Service Date, if different from initiated Date: [] Patient: Jrery Boyd 38 y/o M admitted on 09/22/18 for Psych. Chief Complaint: [Patient continues to improve. The edema and erythema of his hand is significantly improved. He has more granulation of the open wound of his left fourth finger. There is some logistical difficulties with getting his hand debrided and arranging for postoperative follow-up. Hospital administration has been asked to intervene to assist us with this. In the meantime will just continue IV antibiotics and local wound care until such time that we can arrange for primary debridement and then outpatient follow-up until this time for him to have skin grafting.] Objective Temp Pulse Resp BP Pulse Ox 98 F 63 16 121/64 97 09/27/18 16:00 09/27/18 12:00 09/27/18 16:00 09/27/18 16:00 09/27/18 16:00 - Additional Data Intake & Output - Last 24 hours: Intake & Output 09/25/18 09/26/18 09/27/18 09/28/18 05:59 05:59 05:59 05:59 Intake Total 2628 4020 3705 1600 Output Total 2250 2475 2625 2000 Balance 378 1545 1080 -400 Weight 132 lb 127 lb 128 lb 128 lb - General physical appearance well developed, well nourished, no distress - Eyes PERRL, normal ocular movement - ENT normal pinna, normal nares, normal mucosa, no hearing loss, no congestion - Neck no masses, no bruits, trachea midline, no lymphadenopathy, no venous distension - Respiratory normal expansion, normal respiratory effort, clear to auscultation - Cardiovascular Cardiovascular exam: Present: normal rate and rhythm, RRR, +S1, +S2. Absent: JVD, tachycardia - Abdomen non tender (abdominal exam is totally benign) - Integumentary no rash, no growths, no abnormal pigmentation - Neurologic normal coordination, normal sensation - Psychiatric oriented to time, oriented to person, other (still with intermittent episodes of disorientation and hallucination; patient is very docile and very cooperative) - Labs 09/26/18 04:28 09/26/18 04:28 Assessment and Plan (1) Wound, open, finger, with tendon involvement Problem details: CRUSH INJURY with circumferential full thickness skin loss around base of left 4 th finger. Distal edema of finger, with decreased sensation and increased capillary filling time. COOL, DISCOLORED blue east at site of contriction. Status: Acute Assessment and plan: Continue antibiotic therapy and local wound care Awaiting decision of mental health and hand surgeon, concerning disposition Current Visit: Yes (2) Cellulitis Status: Acute Assessment and plan: Continue antibiotic therapy Current Visit: No (3) Schizophrenia, chronic condition with acute exacerbation Status: Acute Current Visit: No - Time Spent With Patient Total time spent is greater than 50% in coordination of care (as documented) at patient's floor/unit and/or counseling patient:
[2018-09-28] MEDS: 0.9 % SODIUM CHLORIDE 1,000 ML IV SCH ×4 (01:12→12:25)
[2018-09-28] MEDS: oxyCODONE/APAP 10/325MG TABLET PO PRN ×3 (04:28→16:27)
[2018-09-28] MEDS: 0.9 % SODIUM CHLORIDE 10 ML SYRINGE IV SCH ×2 (04:29→13:35)
[2018-09-28] MEDS: ENOXAPARIN 40 MG/0.4 ML SYRINGE SQ SCH (09:12)
[2018-09-28] MEDS: GENTAMICIN SULFATE 40 MG, CLINDAMYCIN 300 MG, BACITRACIN 25,000 UNIT in SODIUM CHLORIDE... IRR SCH (09:12)
[2018-09-28] MEDS: cefTRIAXone 1 GM VIAL IV SCH (09:13)
--- NOTE | 2018-09-28 11:29 | General Surgery Progress Note ---
Subjective Patient reports: no new complaints Narrative: Note initiated : 09/28/18 at 11:26 am Service Date, if different from initiated Date: [] Patient: Jerry Boyd 38 y/o M admitted on 09/22/18 for Psych. Chief Complaint: [] Hospitalization Day # 7. Patient seen with Angeles COTO. In patient wound care nurse. Patient doing well. No complaints or interval changes. Wound Examined. Patient COMPLIANT with physical therapy instructions. Objective Temp Pulse Resp BP Pulse Ox 98.9 F 51 L 16 131/85 98 09/28/18 08:00 09/28/18 08:00 09/28/18 08:00 09/28/18 08:00 09/28/18 08:00 AVSS. No Changes AMADOU LEFT hand 4 th finger. IMPROVING ROM of 4 th finger. Resolving edema. Granulating well. Labs and C/S reviewed. - Additional Data Intake & Output - Last 24 hours: Intake & Output 09/26/18 09/27/18 09/28/18 09/29/18 05:59 05:59 05:59 05:59 Intake Total 4020 3705 3380 1203 Output Total 2475 2625 3225 875 Balance 1545 1080 155 328 Weight 127 lb 128 lb 127 lb 8 oz - Labs 09/26/18 04:28 09/26/18 04:28 Assessment and Plan (1) Wound, open, finger, with tendon involvement Problem details: CRUSH INJURY with circumferential full thickness skin loss around base of left 4 th finger. Distal edema of finger, with decreased sensation and increased capillary filling time. COOL, DISCOLORED blue east at site of contriction. Status: Acute Current Visit: Yes - Time Spent With Patient Total time spent is greater than 50% in coordination of care (as documented) at patient's floor/unit and/or counseling patient: Assessment: Progressing well. Situation reviewed with Dr. Julian. Plan: Continue current treatment. PO abx. If discharged, F/U at wound clinic. Patient WILL require surgery. OR Debridement +/- Skin Graft. 25 - 35 minutes
--- NOTE | 2018-09-28 15:47 | Discharge Summary ---
Providers - Providers Patient information: Note initiated : 09/28/18 at 3:45 pm Service Date, if different from initiated Date: [] Patient: Jerry Boyd 38 y/o M admitted on 09/22/18 for Psych. Chief Complaint: [] Date of admission: 09/22/18 Discharge date: 09/28/18 Attending physician: Kia Julian hand surgeon---- Dr. Will LUIS wound home care giver--- Dr. Torres Hospitalization Hospital course: 38-year-old male seen in the emergency room with a crush injury of his left fourth proximal phalanx with circumferential soft tissue necrosis of that phalanx. An extensive cellulitis extending to the wrist. The patient had hemorrhoid a metal band around his finger at the request of A [employer] That he experienced while hallucinating. He has paranoid schizophrenia. The band had been in place for 9 days or more and had necrosis of The tissue including skin, subcutaneous fat with some involvement of the tendons. The distal finger was dark purple and cyanotic and anesthetic. With the help of 2 sets of pliers. The band was removed. The patient was admitted and has had local wound care Since that time. The edema has significantly improved as well as the cellulitis. Culture of the tissue grew out MSSA and there is not been any problems with progression of infection. He is medically stable at this time and is discharged home in the care of his mother. He will have daily wound care and wound clinic and will see Dr. Luis earlier next week to schedule surgery for next Thursday. His urine drug screen was positive for methamphetamines and marijuana. Discharge diagnosis: crush injury left fourth finger Secondary discharge diagnosis: Cellulitis of left hand. Paranoid schizophrenia Reason for admission: ischemic necrosis of left fourth finger due to crush injury Procedures: Removal of metal band of the left fourth finger under local anesthesia Pertinent studies/significant findings: None Complications: None Exam Temp Pulse Resp BP Pulse Ox 98.6 F 56 L 16 116/73 96 09/28/18 12:00 09/28/18 12:00 09/28/18 12:00 09/28/18 12:00 09/28/18 12:00 - General physical appearance well developed, well nourished, no distress - Eyes PERRL, normal ocular movement - ENT normal pinna, normal nares, normal mucosa, no hearing loss, no congestion - Head Head exam IM: Present: atraumatic, normocephalic - Neck no masses, no bruits, trachea midline, no lymphadenopathy, no venous distension - Cardiovascular Cardiovascular exam IM: Present: normal rate and rhythm - Respiratory normal expansion, normal respiratory effort, clear to percussion, clear to auscultation - Abdomen Abdomen: Present: soft, non tender, bowel sounds Hernia: Present: none - Genitourinary Present: normal penis with no external lesions - Integumentary Present: no rash, no growths, no abnormal pigmentation - Neurologic Present: normal coordination, normal sensation - Musculoskeletal Present: normal gait, normal posture - Psychiatric Present: oriented to time, oriented to person, speech is normal, other (paranoia schizophrenia with frequent hallucinations) Discharge Plan - Patient/Caregiver Discharge Instructions Activity: increase activity as tolerated Diet: Regular Diet Additional Instructions: Appointment with wound clinic daily. Appointment with Dr. Luis early next week with plans for surgery next Thursday Prescriptions: Cefuroxime [Ceftin] 500 mg PO Q12 #20 tab OLANZapine [Zyprexa] 20 mg PO DAILY #30 tab oxyCODONE/APAP [Percocet 5-325 mg] 1 tab PO BID #40 tab - Follow up Plan Follow up with: Jerry Wallace PA-C [Physician Car Head Liner Installer] - 10/06/18 8:40 am (please check in ) Disposition: Home, Self-Care Prognosis: Fair Rehab Potential: Fair I certify that the patient requires SNF services.: No Overall status at discharge: patient is not back to baseline Pending Studies Resuscitation Status Full Code Diet Regular Diet Start ThuSeptember 22 1348 Ceftriaxone Sodium (Rocephin) 1 gm IV Q24H PREMA Last Admin: 09/28/18 09:13 Dose: 1 gm Documented by: Admin: 09/27/18 09:48 Dose: 1 gm Documented by: Admin: 09/26/18 08:44 Dose: 1 gm Documented by: ALLEGRA Saldanaigned by: MAGGIE Admin: 09/25/18 09:53 Dose: 1 gm Documented by: Admin: 09/24/18 09:58 Dose: 1 gm Documented by: Admin: 09/23/18 09:07 Dose: 1 gm Documented by: Admin: 09/22/18 14:59 Dose: 1 gm Documented by: [email or web address] Enoxaparin Sodium (Lovenox) 40 mg SQ DAILY PREMA Last Admin: 09/28/18 09:12 Dose: 40 mg Documented by: Admin: 09/27/18 09:48 Dose: 40 mg Documented by: Admin: 09/26/18 08:48 Dose: 40 mg Documented by: ALLEGRA Cosigned by: MAGGIE Admin: 09/25/18 09:53 Dose: 40 mg Documented by: Admin: 09/24/18 09:59 Dose: 40 mg Documented by: Admin: 09/23/18 09:02 Dose: 40 mg Documented by: Admin: 09/22/18 09:14 Dose: 40 mg Documented by: [email or web address] Hydromorphone HCl (Dilaudid) 1 mg IV Q2HP PRN PRN Reason: PAIN LEVEL > 6 Last Admin: 09/24/18 20:05 Dose: 1 mg Documented by: Admin: 09/24/18 15:48 Dose: 1 mg Documented by: Admin: 09/24/18 09:19 Dose: 1 mg Documented by: Admin: 09/23/18 20:36 Dose: 1 mg Documented by: Admin: 09/22/18 21:17 Dose: 1 mg Documented by: Admin: 09/22/18 17:28 Dose: 1 mg Documented by: [email or web address] Admin: 09/22/18 12:02 Dose: 1 mg Documented by: Admin: 09/22/18 09:43 Dose: 1 mg Documented by: [email or web address] Admin: 09/22/18 06:29 Dose: 1 mg Documented by: FRAN Sodium Chloride (Sodium Chloride 0.9%) 1,000 mls @ 100 mls/hr IV .Q10H PREMA Last Admin: 09/28/18 12:25 Dose: Not Given Documented by: Admin: 09/28/18 10:50 Dose: 100 mls/hr Documented by: ALLEGRA Cosigned by: MAGGIE Infusion: 09/28/18 10:50 Dose: 100 mls/hr Documented by: ALLEGRA Cosigned by: MAGGIE Admin: 09/28/18 01:29 Dose: Not Given Documented by: Admin: 09/28/18 01:12 Dose: 100 mls/hr Documented by: Infusion: 09/28/18 01:06 Dose: 100 mls/hr Documented by: Admin: 09/27/18 16:23 Dose: Not Given Documented by: Admin: 09/27/18 15:06 Dose: 100 mls/hr Documented by: Infusion: 09/27/18 13:01 Dose: 100 mls/hr Documented by: Admin: 09/27/18 09:49 Dose: Not Given Documented by: Admin: 09/27/18 03:01 Dose: 100 mls/hr Documented by: Infusion: 09/27/18 02:58 Dose: 100 mls/hr Documented by: Admin: 09/26/18 21:46 Dose: Not Given Documented by: Admin: 09/26/18 16:58 Dose: 100 mls/hr Documented by: ALLEGRA Cosigned by: MGARRED Infusion: 09/26/18 15:36 Dose: 100 mls/hr Documented by: ALLEGRA Cosigned by: MGARRED Admin: 09/26/18 10:12 Dose: Not Given Documented by: Admin: 09/26/18 05:36 Dose: 100 mls/hr Documented by: Infusion: 09/26/18 05:28 Dose: 100 mls/hr Documented by: Admin: 09/26/18 01:14 Dose: Not Given Documented by: Admin: 09/25/18 19:28 Dose: 100 mls/hr Documented by: Infusion: 09/25/18 19:28 Dose: 100 mls/hr Documented by: Admin: 09/25/18 15:27 Dose: Not Given Documented by: Admin: 09/25/18 09:28 Dose: 100 mls/hr Documented by: Infusion: 09/25/18 06:04 Dose: 100 mls/hr Documented by: Admin: 09/24/18 20:04 Dose: 100 mls/hr Documented by: Infusion: 09/24/18 20:04 Dose: 100 mls/hr Documented by: Admin: 09/24/18 12:46 Dose: 100 mls/hr Documented by: [email or web address] Infusion: 09/24/18 12:45 Dose: 0 mls/hr Documented by: [email or web address] Admin: 09/24/18 02:40 Dose: 100 mls/hr Documented by: [email or web address] Infusion: 09/24/18 01:00 Dose: 100 mls/hr Documented by: Admin: 09/23/18 15:00 Dose: 100 mls/hr Documented by: [email or web address] Infusion: 09/23/18 14:42 Dose: 0 mls/hr Documented by: [email or web address] Admin: 09/23/18 04:19 Dose: 100 mls/hr Documented by: Infusion: 09/23/18 03:29 Dose: 100 mls/hr Documented by: Admin: 09/22/18 17:29 Dose: 100 mls/hr Documented by: [email or web address] Infusion: 09/22/18 17:29 Dose: 100 mls/hr Documented by: [email or web address] Admin: 09/22/18 07:29 Dose: 100 mls/hr Documented by: [email or web address] Acetaminophen (Ofirmev) 850 mg in 85 mls @ 170 mls/hr IV Q6HP PRN PRN Reason: PAIN/FEVER > 101 Last Infusion: 09/22/18 21:15 Dose: 0 mls/hr Documented by: Admin: 09/22/18 18:37 Dose: 200 mls/hr Documented by: Infusion: 09/22/18 09:19 Dose: 0 mls/hr Documented by: [email or web address] Admin: 09/22/18 08:47 Dose: 170 mls/hr Documented by: FMF Gentamicin Sulfate 40 mg/Clindamycin Phosphate 300 mg/Bacitracin 25,000 unit/ Sodium Chloride 503 mls @ 0 mls/hr IRR BID PREMA Last Admin: 09/28/18 09:12 Dose: 1 mls/hr Documented by: Admin: 09/27/18 22:54 Dose: 1 mls/hr Documented by: [email or web address] Olanzapine (Zyprexa) 10 mg IM DAILYP PRN PRN Reason: Psychosis Last Admin: 09/22/18 21:20 Dose: 10 mg Documented by: FRAN Oxycodone/Acetaminophen (Percocet 10-325mg) 1 tab PO Q4HP PRN PRN Reason: PAIN LEVEL 3-6 Last Admin: 09/28/18 09:11 Dose: 1 tab Documented by: Admin: 09/28/18 04:28 Dose: 1 tab Documented by: Admin: 09/27/18 22:46 Dose: 1 tab Documented by: Admin: 09/27/18 17:37 Dose: 1 tab Documented by: Admin: 09/27/18 09:49 Dose: 1 tab Documented by: Admin: 09/26/18 21:31 Dose: 1 tab Documented by: Admin: 09/26/18 15:05 Dose: 1 tab Documented by: Admin: 09/26/18 08:48 Dose: 1 tab Documented by: ALLEGRA Cosigned by: MAGGIE Admin: 09/25/18 22:05 Dose: 1 tab Documented by: Admin: 09/25/18 18:03 Dose: 1 tab Documented by: Admin: 09/25/18 15:05 Dose: 1 tab Documented by: ALLEGRA Cosigned by: MAGGIE Admin: 09/25/18 09:51 Dose: 1 tab Documented by: Admin: 09/25/18 04:11 Dose: 1 tab Documented by: Admin: 09/24/18 21:25 Dose: 1 tab Documented by: Admin: 09/24/18 12:46 Dose: 1 tab Documented by: Admin: 09/24/18 07:26 Dose: 1 tab Documented by: Admin: 09/23/18 23:25 Dose: 1 tab Documented by: Admin: 09/23/18 19:20 Dose: 1 tab Documented by: LAURA Sodium Chloride (Saline Flush) 10 ml IV Q8 PREMA Last Admin: 09/28/18 13:35 Dose: Not Given Documented by: Admin: 09/28/18 04:29 Dose: Not Given Documented by: Admin: 09/27/18 22:46 Dose: Not Given Documented by: Admin: 09/27/18 12:13 Dose: Not Given Documented by: Admin: 09/27/18 05:25 Dose: Not Given Documented by: Admin: 09/26/18 21:47 Dose: Not Given Documented by: Admin: 09/26/18 13:08 Dose: Not Given Documented by: Admin: 09/26/18 05:01 Dose: Not Given Documented by: Admin: 09/25/18 23:03 Dose: Not Given Documented by: Admin: 09/25/18 12:42 Dose: Not Given Documented by: Admin: 09/25/18 05:03 Dose: Not Given Documented by: Admin: 09/24/18 21:56 Dose: Not Given Documented by: Admin: 09/24/18 13:19 Dose: Not Given Documented by: Admin: 09/24/18 06:06 Dose: Not Given Documented by: Admin: 09/23/18 20:36 Dose: Not Given Documented by: [email or web address] Admin: 09/23/18 15:01 Dose: Not Given Documented by: Admin: 09/23/18 05:59 Dose: Not Given Documented by: Admin: 09/22/18 22:36 Dose: Not Given Documented by: Admin: 09/22/18 13:36 Dose: Not Given Documented by: [email or web address] Admin: 09/22/18 06:48 Dose: 10 ml Documented by: FRAN Shift Summary 09/28/18 03:38 Shift Summary by Kasey Corral Pt A&O x4. VSS on RA. Pt is up ad kee in room & voids per urinal. Dressing change & mist therapy to left hand/4th digit BID, premedicated with Percocet x 1. IV in RFA with NS @100 ml/hr. Will update with verbal report. Initialized on 09/28/18 03:38 - END OF NOTE
--- NOTE | 2018-09-28 18:19 | Orthopedic Progress Note ---
Subjective Patient information: Note initiated : 09/28/18 at 6:17 pm Service Date, if different from initiated Date: [] Patient: Jerry Boyd 38 y/o M admitted on 09/22/18 for Psych. Chief Complaint: [] Principal diagnosis: Left ring finger open wound secondary to chronic crush injury Interval history: Patient doing well, good pain control, tolerating dressing chenges Objective Vital signs: Vital Signs Temp Pulse Resp BP BP Pulse Ox 09/28/18 17:25 98.4 F 56 L 16 130/79 98 09/28/18 16:00 98.4 F 56 L 16 130/79 98 09/28/18 12:00 98.6 F 56 L 16 116/73 96 09/28/18 08:00 98.9 F 51 L 16 131/85 98 09/28/18 04:21 97.8 F 46 L 18 109/66 97 09/27/18 23:13 98 F 67 18 103/63 96 09/27/18 19:00 97.6 F 57 L 20 107/57 96 Intake and Output 09/28/18 09/28/18 09/28/18 05:59 13:59 21:59 Intake Total 1300 2043 400 Output Total 975 875 775 Balance 325 1168 -375 Intake: IV 1000 963 Sodium Chloride 0.9% 1,000 ml @ 1000 963 100 mls/hr IV .Q10H PREMA Rx#: [id number] Oral 300 1080 400 Output: Void Amount 975 875 775 Other: Meal Lunch Percent of Meal Consumed 100% Feeding Ability Independent Urine Appearance Clear Urine Color Dark Yellow Bright Yellow Urine Odor Normal # Voids 1 Intake & Output: Intake & Output 09/28/18 09/28/18 09/28/18 05:59 13:59 21:59 Intake Total 1300 2043 400 Output Total 975 875 775 Balance 325 1168 -375 Intake: IV 1000 963 Sodium Chloride 0.9% 1,000 ml @ 1000 963 100 mls/hr IV .Q10H PREMA Rx#: [id number] Oral 300 1080 400 Output: Void Amount 975 875 775 Other: Meal Lunch Percent of Meal Consumed 100% Feeding Ability Independent Urine Appearance Clear Urine Color Dark Yellow Bright Yellow Urine Odor Normal # Voids 1 Incision: Yes healing Dressing: Yes clean, Yes dry, Yes intact Weight bearing status: full Neurological exam IM: Yes neurovascular intact Additional Comments: Left ring finger with wound healing with good granulation tissue. Some dorsal and masterson eschar formation. N/V intact Extremities exam IM: Yes normal capillary refill - Labs CBC & BMP: 09/26/18 04:28 09/26/18 04:28 Labs: 09/26/18 09/25/18 09/24/18 04:28 04:10 03:54 Hgb 12.1 L 12.3 L 12.2 L Hct 36.6 L 37.1 L 36.9 L 09/21/18 23:35 Hgb 13.9 Hct 41.9 Assessment and Plan - Narrative A/P Narrative: Assessment: 1. Chronic paranoid schizophrenia, untreated 2. 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 Showing some granulation tissue 3. Left ring finger at risk for continued necrosis Plan: 1. Continue daily wound care as per Wound Care Service 2. Continue oral antibiotics 3. Follow up with THOMAS in one week
--- NOTE | 2018-10-14 13:09 | Operative Note ---
DATE OF OPERATION: 09/22/2018 PREOPERATIVE DIAGNOSIS: Ischemic necrosis left ring finger due to constricting metal band. POSTOPERATIVE DIAGNOSIS: Ischemic necrosis left ring finger due to constricting metal band with cellulitis of the hand and fingers. PROCEDURE: Removal of the metal band proximal phalanx left ring finger, under anesthesia. SURGEON: Kia Julian M.D. ANESTHESIA: Local digital block. INDICATIONS: The patient was seen in the emergency room because of a psychotic episode. He has schizophrenia and he relates that he was told to place a metal band around his left ring finger to prove his allegiance to the voices. The metal band was placed and was hammered tightly around the finger. He presents to the emergency room with evidence of ischemic necrosis of the soft tissue of the proximal phalanx with cellulitis and secondary infection of the area. DESCRIPTION OF PROCEDURE: The patient was informed that we would have to use pliers to loosen the band and remove it from around his finger. The patient gave written and verbal consent. The left hand was prepped and draped with Betadine followed by ChloraPrep. Digital block was done at the base of the ring finger at the MP joint using 1% Xylocaine. After adequate anesthesia was obtained, the hand was prepped and draped. Regular pliers and needle nose pliers were used to grasp the metal and to stretch it, taking care not to injure the underlying tissue. The band was removed without difficulty. The finger had more perfusion after the band was removed. Using Metzenbaum scissors some of the necrotic skin was removed circumferentially. The exposed area was covered with bacitracin ointment and a finger dressing was applied and this was covered with a bulky hand dressing. The patient tolerated the procedure well. He is informed that he will be admitted for IV antibiotics and for monitoring of the hand. I will ask the hand surgeon to reevaluate the digit and the rest of the hand in the morning. LCS:tomasa Job ID: [id number] Doc ID: [id number] Kia Julian M.D.
== END 2018-09-28 17:47 | disposition home or self-care (01) | DRG 605 ==
LOC: MEDSUR 22:26 → ED 22:26 → MEDSUR 09-22 02:05
PROVIDERS: ADMIT Family Medicine Adult Medicine; ATTEND Family Medicine Adult Medicine